=== PATIENT | male | born 1940 | race Caucasian/White ===

== ENCOUNTER 2018-03-14 14:54 | Inpatient (IN) | payer MEDICARE, OTHER ==
[2018-03-14 15:12] LABS: BEDSIDE GLUCOSE 192 MG/DL (83-110)
[2018-03-14] MEDS ORDERED: DOCUSATE SODIUM 100 MG CAP PO (18:15)
[2018-03-14] MEDS ORDERED: DEXTROSE 50% 50 ML SYRINGE IV (18:15)
[2018-03-14] MEDS ORDERED: GLUCAGON FOR INJ 1 MG VIAL (J1610) SC (18:15)
[2018-03-14] MEDS ORDERED: GLUCOSE 4 GM CHEW TABLET PO (18:15)
[2018-03-14] MEDS ORDERED: BISACODYL 10 MG SUPP PR (18:15)
[2018-03-14] MEDS ORDERED: SENNA 8.6 MG TAB (SENOKOT) PO (18:15)
[2018-03-14] MEDS: amLODIPine 5 MG TAB PO (18:41)
[2018-03-14] MEDS: ACETAMINOPHEN TAB 650MG DOSE (2X325MG) PO (18:52)
[2018-03-14 19:30] LABS: KETONE, URINE AUTO RFX TRACE mg/dL (NEGATIVE); LEUKOCYTE ESTERASE UR AUTO RFX NEGATIVE (NEGATIVE); MUCUS, URINE RFX SMALL (NEGATIVE); NITRITE, URINE AUTO RFX NEGATIVE (NEGATIVE); RBC, URINE AUTO RFX 2 /HPF (0-3); SPECIFIC GRAVITY UR AUTO RFX 1.014 (1.002-1.035); SQUAM EPITHELIAL CELL UR AURFX 0 /HPF (0-6); WBC, URINE AUTO RFX 3 /HPF (0-3)
[2018-03-14] MEDS: SODIUM CHLORIDE 1 GM TAB PO (20:13)
[2018-03-14] MEDS: HEPARIN SOD (PORCINE) 5000 UNITS/ML VIAL SQ (20:13)
[2018-03-14] MEDS: DOXYCYCLINE HYCLATE 100 MG TAB PO (20:14)
[2018-03-14] MEDS: POTASSIUM CHLORIDE 10 MEQ SR TABLET PO (20:14)
[2018-03-14 21:09] LABS: BEDSIDE GLUCOSE 241 MG/DL (83-110)
[2018-03-15] MEDS: ACETAMINOPHEN TAB 650MG DOSE (2X325MG) PO ×2 (02:52→20:13)
[2018-03-15 07:34] LABS: BASO % 0.2 % (0.0-1.0); HEMATOCRIT 41.3 % (42.0-52.0); HEMOGLOBIN 14.3 g/dl (13.5-17.5); IMMATURE GRANULOCYTE % 0.5 % (0-3.0); LYMPH # 0.8 10^3/uL (1.5-4.5); LYMPH % 9.9 % (24.0-44.0); MEAN CORPUSCULAR HEMOGLOBIN 28.7 pg (27.0-33.0); MEAN CORPUSCULAR HGB CONC 34.6 g/dl (32.0-36.5); MEAN CORPUSCULAR VOLUME 82.9 fl (80.0-96.0); MONO # 0.7 10^3/uL (0.0-0.8); MONO % 8.6 % (0.0-5.0); NEUTROPHILS # 6.6 10^3/uL (1.8-7.7); NEUTROPHILS % 80.8 % (36.0-66.0); PLATELET COUNT, AUTOMATED 134 10^3/uL (150-450); RED BLOOD COUNT 4.98 10^6/uL (4.30-6.10); RED CELL DISTRIBUTION WIDTH 13.2 % (11.5-14.5); WHITE BLOOD COUNT 8.2 10^3/uL (4.0-10.0)
[2018-03-15] MEDS ORDERED: metFORMIN (GLUCOPHAGE) 500 MG TAB PO (08:00)
[2018-03-15 08:08] LABS: ALBUMIN 3.2 GM/DL (3.2-5.2); ALBUMIN/GLOBULIN RATIO 0.91 (1.00-1.93); ALKALINE PHOSPHATASE 113 U/L (45-117); ALT/SGPT 43 U/L (12-78); ANION GAP 8 MEQ/L (8-16); AST/SGOT 41 U/L (7-37); BILIRUBIN,TOTAL 0.8 MG/DL (0.2-1.0); BLOOD UREA NITROGEN 12 MG/DL (7-18); CALCIUM LEVEL 8.1 MG/DL (8.8-10.2); CARBON DIOXIDE LEVEL 25 MEQ/L (21-32); CHLORIDE LEVEL 97 MEQ/L (98-107); GLOMERULAR FILTRATION RATE > 60.0 (>42); GLUCOSE, FASTING 182 MG/DL (70-100); POTASSIUM SERUM 3.2 MEQ/L (3.5-5.1); SODIUM LEVEL 130 MEQ/L (136-145); TOTAL PROTEIN 6.7 GM/DL (6.4-8.2)
[2018-03-15] MEDS: POTASSIUM CHLORIDE 10 MEQ SR TABLET PO ×3 (08:55→20:14)
[2018-03-15] MEDS: FINASTERIDE 5 MG TAB PO (08:56)
[2018-03-15] MEDS: PANTOPRAZOLE 40MG TAB (PROTONIX) PO (08:56)
[2018-03-15] MEDS: SODIUM CHLORIDE 1 GM TAB PO ×3 (08:56→20:13)
[2018-03-15] MEDS: metFORMIN (GLUCOPHAGE) 500 MG TAB PO ×2 (08:56→17:42)
[2018-03-15] MEDS: HEPARIN SOD (PORCINE) 5000 UNITS/ML VIAL SQ ×2 (08:56→20:15)
[2018-03-15] MEDS: DOXYCYCLINE HYCLATE 100 MG TAB PO ×2 (08:56→20:14)
[2018-03-15] MEDS: amLODIPine 10 MG TAB PO (08:56)
[2018-03-15] MEDS: HumaLOG INSULIN (NovoLOG) PER UNIT SC ×3 (08:57→17:42)
[2018-03-15] MEDS: LOSARTAN 50 MG TAB PO (10:40)
[2018-03-15 11:45] LABS: BEDSIDE GLUCOSE 216 MG/DL (83-110)
[2018-03-15] MEDS: LISINOPRIL 10 MG TAB PO ×2 (14:32→20:14)
[2018-03-15 16:30] LABS: BEDSIDE GLUCOSE 138 MG/DL (83-110)
[2018-03-15] MEDS: LEVEMIR (INSULIN DETEMIR) 1 UNITS/0.01ML SC (20:15)
[2018-03-15 20:22] LABS: BEDSIDE GLUCOSE 204 MG/DL (83-110)
[2018-03-16 06:48] LABS: ANION GAP 10 MEQ/L (8-16); BLOOD UREA NITROGEN 17 MG/DL (7-18); CALCIUM LEVEL 8.2 MG/DL (8.8-10.2); CARBON DIOXIDE LEVEL 22 MEQ/L (21-32); CHLORIDE LEVEL 98 MEQ/L (98-107); CREATININE FOR GFR 0.62 MG/DL (0.70-1.30); GLOMERULAR FILTRATION RATE > 60.0 (>42); GLUCOSE, FASTING 167 MG/DL (70-100); POTASSIUM SERUM 3.5 MEQ/L (3.5-5.1); SODIUM LEVEL 130 MEQ/L (136-145)
[2018-03-16] MEDS: SODIUM CHLORIDE 1 GM TAB PO ×3 (08:47→19:58)
[2018-03-16] MEDS: metFORMIN (GLUCOPHAGE) 500 MG TAB PO ×2 (08:47→17:00)
[2018-03-16] MEDS: DOXYCYCLINE HYCLATE 100 MG TAB PO ×2 (08:47→19:58)
[2018-03-16] MEDS: PANTOPRAZOLE 40MG TAB (PROTONIX) PO (08:47)
[2018-03-16] MEDS: FINASTERIDE 5 MG TAB PO (08:48)
[2018-03-16] MEDS: HEPARIN SOD (PORCINE) 5000 UNITS/ML VIAL SQ ×2 (08:48→19:59)
[2018-03-16] MEDS: POTASSIUM CHLORIDE 10 MEQ SR TABLET PO ×2 (08:48→19:58)
[2018-03-16] MEDS: HumaLOG INSULIN (NovoLOG) PER UNIT SC ×3 (08:49→17:00)
[2018-03-16] MEDS: FLUBLOK(EGG FREE)(QUAD)INFLUENZA VACC 0.5ML SYRINGE (90682)18YRS&OLDER IM (08:50)
[2018-03-16] MEDS: amLODIPine 10 MG TAB PO (08:56)
[2018-03-16] MEDS: LISINOPRIL 10 MG TAB PO ×2 (08:56→19:59)
[2018-03-16] MEDS: LOSARTAN 50 MG TAB PO (10:11)
[2018-03-16 11:51] LABS: BEDSIDE GLUCOSE 169 MG/DL (83-110)
[2018-03-16 16:20] LABS: BEDSIDE GLUCOSE 150 MG/DL (83-110)
[2018-03-16] MEDS: NYSTATIN CREAM 15 GM TOP (19:58)
[2018-03-16] MEDS: ACETAMINOPHEN TAB 650MG DOSE (2X325MG) PO (19:59)
[2018-03-16 20:00] LABS: BEDSIDE GLUCOSE 188 MG/DL (83-110)
[2018-03-16] MEDS: LEVEMIR (INSULIN DETEMIR) 1 UNITS/0.01ML SC (20:00)
[2018-03-17 07:05] LABS: BEDSIDE GLUCOSE 177 MG/DL (83-110)
[2018-03-17] MEDS: SODIUM CHLORIDE 1 GM TAB PO (08:13)
[2018-03-17] MEDS: PANTOPRAZOLE 40MG TAB (PROTONIX) PO (08:13)
[2018-03-17] MEDS: FINASTERIDE 5 MG TAB PO (08:14)
[2018-03-17] MEDS: DOXYCYCLINE HYCLATE 100 MG TAB PO (08:14)
[2018-03-17] MEDS: POTASSIUM CHLORIDE 10 MEQ SR TABLET PO (08:14)
[2018-03-17] MEDS: metFORMIN (GLUCOPHAGE) 500 MG TAB PO (08:14)
[2018-03-17] MEDS: LISINOPRIL 10 MG TAB PO ×2 (08:16→13:13)
[2018-03-17] MEDS: HumaLOG INSULIN (NovoLOG) PER UNIT SC ×2 (08:18→13:13)
[2018-03-17] MEDS: HEPARIN SOD (PORCINE) 5000 UNITS/ML VIAL SQ (08:18)
[2018-03-17] MEDS: amLODIPine 10 MG TAB PO (08:18)
[2018-03-17] MEDS: NYSTATIN CREAM 15 GM TOP (08:19)
[2018-03-17] MEDS: CLOBETASOL 0.05% TOP (09:00)
[2018-03-17] MEDS: LOSARTAN 50 MG TAB PO (10:02)
[2018-03-17 11:41] LABS: BEDSIDE GLUCOSE 175 MG/DL (83-110)
[2018-03-17] MEDS: LISINOPRIL 20 MG TAB PO (15:39)
[2018-03-17] MEDS ORDERED: LISINOPRIL 20 MG TAB PO (21:00)
== END 2018-03-17 16:43 | disposition short-term general hospital (02) | DRG 56 ==
LOC: M PM&R 14:54
PROVIDERS: Physical Medicine & Rehabilitation
DX: I69.254 Hemiplegia and hemiparesis following other nontraumatic intracranial hemorrhage affecting left non-dominant side (principal); I61.1 Nontraumatic intracerebral hemorrhage in hemisphere, cortical; E87.1 Hypo-osmolality and hyponatremia; E87.6 Hypokalemia; E11.9 Type 2 diabetes mellitus without complications; I10 Essential (primary) hypertension; Z79.899 Other long term (current) drug therapy; Z79.4 Long term (current) use of insulin; L73.9 Follicular disorder, unspecified

== ENCOUNTER 2018-03-21 18:45 | Inpatient (IN) | payer MEDICARE, OTHER ==
[2018-03-21] MEDS ORDERED: BISACODYL 10 MG SUPP PR (20:15)
[2018-03-21] MEDS ORDERED: GLUCOSE 4 GM CHEW TABLET PO (20:15)
[2018-03-21] MEDS ORDERED: GLUCAGON FOR INJ 1 MG VIAL (J1610) SC (20:15)
[2018-03-21] MEDS ORDERED: DEXTROSE 50% 50 ML SYRINGE IV (20:15)
[2018-03-21 20:21] LABS: BEDSIDE GLUCOSE 231 MG/DL (83-110)
[2018-03-21] MEDS: CLOBETASOL PROP 0.05% OINT 30 GM TOP (22:15)
[2018-03-21] MEDS: POTASSIUM CHLORIDE 10 MEQ SR TABLET PO (22:15)
[2018-03-21] MEDS: **hydrALAZINE HCL** 25 MG TAB PO (22:15)
[2018-03-21] MEDS: ACETAMINOPHEN TAB 650MG DOSE (2X325MG) PO (22:16)
[2018-03-21] MEDS: SODIUM CHLORIDE 1 GM TAB PO (22:16)
[2018-03-21] MEDS: METOPROLOL TARTRATE 100 MG TAB PO (22:16)
[2018-03-22 00:56] LABS: APPEARANCE, URINE CLEAR (CLEAR); BACTERIA, URINE AUTO NEGATIVE (NEGATIVE); BILIRUBIN, URINE AUTO NEGATIVE (NEGATIVE); BLOOD, URINE BLOOD 1+ (NEGATIVE); COLOR, URINE YELLOW (YELLOW); GLUCOSE, URINE (UA) AUTO 3+ mg/dL (NEGATIVE); KETONE, URINE AUTO NEGATIVE (NEGATIVE); LEUKOCYTE ESTERASE, URINE AUTO TRACE (NEGATIVE); MUCUS, URINE SMALL (NEGATIVE); NITRITE, URINE AUTO NEGATIVE (NEGATIVE); PROTEIN, URINE AUTO NEGATIVE (NEGATIVE); RBC, URINE AUTO 7 /HPF (0-3); SPECIFIC GRAVITY URINE AUTO 1.017 (1.002-1.035); SQUAMOUS EPITHELIAL CELL UR AU 0 /HPF (0-6); UROBILINOGEN, URINE AUTO 0.2 mg/dL (0.0-2.0); WBC, URINE AUTO 8 /HPF (0-3)
[2018-03-22] MEDS: **hydrALAZINE HCL** 25 MG TAB PO ×2 (04:00→05:57)
[2018-03-22 07:02] LABS: BASO % 0.2 % (0.0-1.0); EOS % 0.5 % (0.0-3.0); HEMATOCRIT 38.4 % (42.0-52.0); IMMATURE GRANULOCYTE % 0.5 % (0-3.0); LYMPH # 0.8 10^3/uL (1.5-4.5); LYMPH % 8.9 % (24.0-44.0); MEAN CORPUSCULAR HEMOGLOBIN 28.4 pg (27.0-33.0); MEAN CORPUSCULAR HGB CONC 33.9 g/dl (32.0-36.5); MONO # 0.7 10^3/uL (0.0-0.8); MONO % 7.9 % (0.0-5.0); PLATELET COUNT, AUTOMATED 191 10^3/uL (150-450); RED BLOOD COUNT 4.57 10^6/uL (4.30-6.10); RED CELL DISTRIBUTION WIDTH 13.2 % (11.5-14.5); WHITE BLOOD COUNT 8.6 10^3/uL (4.0-10.0)
[2018-03-22 07:33] LABS: ALBUMIN 2.7 GM/DL (3.2-5.2); ALBUMIN/GLOBULIN RATIO 0.75 (1.00-1.93); ALKALINE PHOSPHATASE 126 U/L (45-117); ALT/SGPT 56 U/L (12-78); ANION GAP 9 MEQ/L (8-16); AST/SGOT 27 U/L (7-37); BILIRUBIN,TOTAL 0.6 MG/DL (0.2-1.0); BLOOD UREA NITROGEN 14 MG/DL (7-18); CALCIUM LEVEL 8.3 MG/DL (8.8-10.2); CARBON DIOXIDE LEVEL 25 MEQ/L (21-32); CHLORIDE LEVEL 99 MEQ/L (98-107); CREATININE FOR GFR 0.76 MG/DL (0.70-1.30); GLOMERULAR FILTRATION RATE > 60.0 (>42); GLUCOSE, FASTING 191 MG/DL (70-100); POTASSIUM SERUM 3.7 MEQ/L (3.5-5.1); SODIUM LEVEL 133 MEQ/L (136-145); TOTAL PROTEIN 6.3 GM/DL (6.4-8.2)
[2018-03-22] MEDS: HumaLOG INSULIN (NovoLOG) PER UNIT SC ×4 (08:35→17:30)
[2018-03-22] MEDS: amLODIPine 10 MG TAB PO (08:35)
[2018-03-22] MEDS: PANTOPRAZOLE 40MG TAB (PROTONIX) PO (08:36)
[2018-03-22] MEDS: FINASTERIDE 5 MG TAB PO (08:36)
[2018-03-22] MEDS: ATORVASTATIN 20 MG TAB PO (08:36)
[2018-03-22] MEDS: METOPROLOL TARTRATE 100 MG TAB PO ×2 (08:36→20:28)
[2018-03-22] MEDS: metFORMIN (GLUCOPHAGE) 500 MG TAB PO ×2 (08:36→16:49)
[2018-03-22] MEDS: LOSARTAN 50 MG TAB PO (08:36)
[2018-03-22] MEDS: CLOBETASOL PROP 0.05% OINT 30 GM TOP ×2 (08:37→20:28)
[2018-03-22] MEDS: POTASSIUM CHLORIDE 10 MEQ SR TABLET PO ×2 (08:37→20:27)
[2018-03-22] MEDS: SODIUM CHLORIDE 1 GM TAB PO ×3 (08:37→20:26)
[2018-03-22 11:31] LABS: BEDSIDE GLUCOSE 270 MG/DL (83-110)
[2018-03-22] MEDS: **hydrALAZINE** 50 MG TAB PO ×2 (13:37→22:00)
[2018-03-22 16:41] LABS: BEDSIDE GLUCOSE 177 MG/DL (83-110)
[2018-03-22] MEDS ORDERED: GLUCOSE 4 GM CHEW TABLET PO (16:45)
[2018-03-22] MEDS ORDERED: ENOXAPARIN 40 MG/0.4 ML SYRINGE (J1650) SC (16:45)
[2018-03-22] MEDS ORDERED: DEXTROSE 50% 50 ML SYRINGE IV (16:45)
[2018-03-22] MEDS ORDERED: GLUCAGON FOR INJ 1 MG VIAL (J1610) SC (16:45)
[2018-03-22] MEDS: NovoLOG MIX 70/30 PER UNIT SC (17:49)
[2018-03-22 20:13] LABS: BEDSIDE GLUCOSE 196 MG/DL (83-110)
[2018-03-22] MEDS: LEVEMIR (INSULIN DETEMIR) 1 UNITS/0.01ML SC (20:27)
[2018-03-22] MEDS: ACETAMINOPHEN TAB 650MG DOSE (2X325MG) PO (20:27)
[2018-03-23 05:17] LABS: BEDSIDE GLUCOSE 222 MG/DL (83-110)
[2018-03-23] MEDS: **hydrALAZINE** 50 MG TAB PO ×3 (05:23→21:19)
[2018-03-23] MEDS: HumaLOG INSULIN (NovoLOG) PER UNIT SC ×3 (08:45→17:20)
[2018-03-23] MEDS: METOPROLOL TARTRATE 100 MG TAB PO ×2 (08:47→21:00)
[2018-03-23] MEDS: FINASTERIDE 5 MG TAB PO (08:47)
[2018-03-23] MEDS: PANTOPRAZOLE 40MG TAB (PROTONIX) PO (08:47)
[2018-03-23] MEDS: POTASSIUM CHLORIDE 10 MEQ SR TABLET PO ×2 (08:48→20:37)
[2018-03-23] MEDS: LOSARTAN 50 MG TAB PO (08:48)
[2018-03-23] MEDS: SODIUM CHLORIDE 1 GM TAB PO ×3 (08:48→20:37)
[2018-03-23] MEDS: metFORMIN (GLUCOPHAGE) 500 MG TAB PO ×2 (08:48→17:18)
[2018-03-23] MEDS: amLODIPine 10 MG TAB PO (08:48)
[2018-03-23] MEDS: ATORVASTATIN 20 MG TAB PO (08:48)
[2018-03-23] MEDS: CLOBETASOL PROP 0.05% OINT 30 GM TOP ×2 (08:49→20:44)
[2018-03-23 11:43] LABS: BEDSIDE GLUCOSE 202 MG/DL (83-110)
[2018-03-23 16:44] LABS: BEDSIDE GLUCOSE 223 MG/DL (83-110)
[2018-03-23] MEDS: NovoLOG MIX 70/30 PER UNIT SC (17:19)
[2018-03-23] MEDS: ACETAMINOPHEN TAB 650MG DOSE (2X325MG) PO (17:22)
[2018-03-23] MEDS: LEVEMIR (INSULIN DETEMIR) 1 UNITS/0.01ML SC (20:38)
[2018-03-23 20:39] LABS: BEDSIDE GLUCOSE 170 MG/DL (83-110)
[2018-03-24] MEDS: **hydrALAZINE** 50 MG TAB PO ×3 (05:46→21:37)
[2018-03-24 05:52] LABS: BEDSIDE GLUCOSE 175 MG/DL (83-110)
[2018-03-24 06:47] LABS: BASO % 0.3 % (0.0-1.0); EOS % 0.4 % (0.0-3.0); HEMATOCRIT 42.1 % (42.0-52.0); HEMOGLOBIN 14.3 g/dl (13.5-17.5); IMMATURE GRANULOCYTE % 0.7 % (0-3.0); LYMPH # 0.9 10^3/uL (1.5-4.5); LYMPH % 8.4 % (24.0-44.0); MEAN CORPUSCULAR HEMOGLOBIN 28.4 pg (27.0-33.0); MEAN CORPUSCULAR VOLUME 83.7 fl (80.0-96.0); MONO # 0.7 10^3/uL (0.0-0.8); MONO % 6.4 % (0.0-5.0); NEUTROPHILS # 9.1 10^3/uL (1.8-7.7); NEUTROPHILS % 83.8 % (36.0-66.0); PLATELET COUNT, AUTOMATED 240 10^3/uL (150-450); RED BLOOD COUNT 5.03 10^6/uL (4.30-6.10); RED CELL DISTRIBUTION WIDTH 13.2 % (11.5-14.5); WHITE BLOOD COUNT 10.8 10^3/uL (4.0-10.0)
[2018-03-24 07:15] LABS: ANION GAP 9 MEQ/L (8-16); BLOOD UREA NITROGEN 13 MG/DL (7-18); CALCIUM LEVEL 8.8 MG/DL (8.8-10.2); CARBON DIOXIDE LEVEL 25 MEQ/L (21-32); CHLORIDE LEVEL 98 MEQ/L (98-107); CREATININE FOR GFR 0.74 MG/DL (0.70-1.30); GLOMERULAR FILTRATION RATE > 60.0 (>42); GLUCOSE, FASTING 170 MG/DL (70-100); POTASSIUM SERUM 3.9 MEQ/L (3.5-5.1); SODIUM LEVEL 132 MEQ/L (136-145)
[2018-03-24] MEDS: HumaLOG INSULIN (NovoLOG) PER UNIT SC ×3 (08:29→17:20)
[2018-03-24] MEDS: ATORVASTATIN 20 MG TAB PO (08:29)
[2018-03-24] MEDS: LOSARTAN 50 MG TAB PO (08:29)
[2018-03-24] MEDS: PANTOPRAZOLE 40MG TAB (PROTONIX) PO (08:29)
[2018-03-24] MEDS: SODIUM CHLORIDE 1 GM TAB PO ×3 (08:29→21:34)
[2018-03-24] MEDS: FINASTERIDE 5 MG TAB PO (08:30)
[2018-03-24] MEDS: amLODIPine 10 MG TAB PO (08:30)
[2018-03-24] MEDS: POTASSIUM CHLORIDE 10 MEQ SR TABLET PO ×2 (08:30→21:34)
[2018-03-24] MEDS: metFORMIN (GLUCOPHAGE) 500 MG TAB PO ×2 (08:30→17:18)
[2018-03-24] MEDS: METOPROLOL TARTRATE 100 MG TAB PO ×2 (08:31→21:34)
[2018-03-24] MEDS: CLOBETASOL PROP 0.05% OINT 30 GM TOP ×2 (08:31→21:36)
[2018-03-24 11:51] LABS: BEDSIDE GLUCOSE 199 MG/DL (83-110)
[2018-03-24] MEDS ORDERED: traZODone 25MG PER 1/2 TABLET PO (12:45)
[2018-03-24] MEDS: FLUoxetine 20 MG CAP PO (16:32)
[2018-03-24 16:43] LABS: BEDSIDE GLUCOSE 222 MG/DL (83-110)
[2018-03-24] MEDS: NovoLOG MIX 70/30 PER UNIT SC (17:19)
[2018-03-24] MEDS: BISACODYL 10 MG SUPP PR (20:00)
[2018-03-24 20:10] LABS: BEDSIDE GLUCOSE 165 MG/DL (83-110)
[2018-03-24] MEDS: DOCUSATE SODIUM 100 MG CAP PO (21:33)
[2018-03-24] MEDS: traZODone 50 MG TAB PO (21:33)
[2018-03-24] MEDS: LEVEMIR (INSULIN DETEMIR) 1 UNITS/0.01ML SC (21:35)
[2018-03-24] MEDS: CHLORHEXIDINE ORAL RINSE 0.12%/15ML 120ML BOTTLE SSP (21:35)
[2018-03-25] MEDS: **hydrALAZINE** 50 MG TAB PO ×3 (05:29→21:09)
[2018-03-25] MEDS: METOPROLOL TARTRATE 100 MG TAB PO ×2 (08:55→20:41)
[2018-03-25] MEDS: LOSARTAN 50 MG TAB PO (08:55)
[2018-03-25] MEDS: FLUoxetine 20 MG CAP PO (08:56)
[2018-03-25] MEDS: POTASSIUM CHLORIDE 10 MEQ SR TABLET PO ×2 (08:56→20:39)
[2018-03-25] MEDS: ATORVASTATIN 20 MG TAB PO (08:56)
[2018-03-25] MEDS: FINASTERIDE 5 MG TAB PO (08:56)
[2018-03-25] MEDS: metFORMIN (GLUCOPHAGE) 500 MG TAB PO ×2 (08:56→17:55)
[2018-03-25] MEDS: amLODIPine 10 MG TAB PO (08:56)
[2018-03-25] MEDS: SODIUM CHLORIDE 1 GM TAB PO ×3 (08:56→20:39)
[2018-03-25] MEDS: DOCUSATE SODIUM 100 MG CAP PO ×2 (08:56→20:38)
[2018-03-25] MEDS: PANTOPRAZOLE 40MG TAB (PROTONIX) PO (08:56)
[2018-03-25] MEDS: CHLORHEXIDINE ORAL RINSE 0.12%/15ML 120ML BOTTLE SSP ×2 (08:57→20:40)
[2018-03-25] MEDS: CLOBETASOL PROP 0.05% OINT 30 GM TOP ×2 (08:58→20:42)
[2018-03-25] MEDS: HumaLOG INSULIN (NovoLOG) PER UNIT SC ×3 (09:30→17:56)
[2018-03-25 09:57] LABS: HEMATOCRIT 43.4 % (42.0-52.0); HEMOGLOBIN 14.5 g/dl (13.5-17.5); MEAN CORPUSCULAR HEMOGLOBIN 28.8 pg (27.0-33.0); MEAN CORPUSCULAR HGB CONC 33.4 g/dl (32.0-36.5); MEAN CORPUSCULAR VOLUME 86.3 fl (80.0-96.0); PLATELET COUNT, AUTOMATED 292 10^3/uL (150-450); RED BLOOD COUNT 5.03 10^6/uL (4.30-6.10); RED CELL DISTRIBUTION WIDTH 13.5 % (11.5-14.5)
[2018-03-25 10:23] LABS: ANION GAP 8 MEQ/L (8-16); BLOOD UREA NITROGEN 18 MG/DL (7-18); CALCIUM LEVEL 9.1 MG/DL (8.8-10.2); CARBON DIOXIDE LEVEL 27 MEQ/L (21-32); CHLORIDE LEVEL 97 MEQ/L (98-107); CREATININE FOR GFR 1.15 MG/DL (0.70-1.30); GLOMERULAR FILTRATION RATE > 60.0 (>42); GLUCOSE, FASTING 303 MG/DL (70-100); POTASSIUM SERUM 4.3 MEQ/L (3.5-5.1); SODIUM LEVEL 132 MEQ/L (136-145)
[2018-03-25 11:46] LABS: BEDSIDE GLUCOSE 238 MG/DL (83-110)
[2018-03-25] MEDS: SENNA 8.6 MG TAB (SENOKOT) PO (12:00)
[2018-03-25] MEDS: CIPROFLOXACIN 500 MG TAB PO ×2 (12:00→17:55)
[2018-03-25 15:18] LABS: KETONE, URINE AUTO RFX NEGATIVE (NEGATIVE); MUCUS, URINE RFX SMALL (NEGATIVE); NITRITE, URINE AUTO RFX NEGATIVE (NEGATIVE); RBC, URINE AUTO RFX TNTC /HPF (0-3); SPECIFIC GRAVITY UR AUTO RFX 1.017 (1.002-1.035); SQUAM EPITHELIAL CELL UR AURFX 0 /HPF (0-6)
[2018-03-25 15:27] LABS: LEUKOCYTE ESTERASE UR AUTO RFX 3+ (NEGATIVE); WBC, URINE AUTO RFX TNTC /HPF (0-3)
[2018-03-25 17:04] LABS: BEDSIDE GLUCOSE 145 MG/DL (83-110)
[2018-03-25] MEDS: NovoLOG MIX 70/30 PER UNIT SC (17:57)
[2018-03-25 19:42] LABS: BEDSIDE GLUCOSE 270 MG/DL (83-110)
[2018-03-25] MEDS: BISACODYL 10 MG SUPP PR (20:00)
[2018-03-25] MEDS: LEVEMIR (INSULIN DETEMIR) 1 UNITS/0.01ML SC (20:40)
[2018-03-25] MEDS: traZODone 50 MG TAB PO (20:41)
[2018-03-26 05:23] LABS: BEDSIDE GLUCOSE 182 MG/DL (83-110)
[2018-03-26] MEDS: CIPROFLOXACIN 500 MG TAB PO ×2 (05:57→17:50)
[2018-03-26] MEDS: **hydrALAZINE** 50 MG TAB PO ×3 (05:57→22:01)
[2018-03-26 07:07] LABS: HEMATOCRIT 42.1 % (42.0-52.0); HEMOGLOBIN 14.1 g/dl (13.5-17.5); MEAN CORPUSCULAR HEMOGLOBIN 28.7 pg (27.0-33.0); MEAN CORPUSCULAR HGB CONC 33.5 g/dl (32.0-36.5); MEAN CORPUSCULAR VOLUME 85.6 fl (80.0-96.0); PLATELET COUNT, AUTOMATED 233 10^3/uL (150-450); RED BLOOD COUNT 4.92 10^6/uL (4.30-6.10); RED CELL DISTRIBUTION WIDTH 13.5 % (11.5-14.5); WHITE BLOOD COUNT 10.6 10^3/uL (4.0-10.0)
[2018-03-26 07:37] LABS: ALBUMIN 3.1 GM/DL (3.2-5.2); ALBUMIN/GLOBULIN RATIO 0.86 (1.00-1.93); ALKALINE PHOSPHATASE 145 U/L (45-117); ALT/SGPT 52 U/L (12-78); ANION GAP 8 MEQ/L (8-16); AST/SGOT 20 U/L (7-37); BILIRUBIN,TOTAL 0.6 MG/DL (0.2-1.0); BLOOD UREA NITROGEN 23 MG/DL (7-18); CALCIUM LEVEL 8.6 MG/DL (8.8-10.2); CARBON DIOXIDE LEVEL 25 MEQ/L (21-32); CHLORIDE LEVEL 103 MEQ/L (98-107); CREATININE FOR GFR 0.92 MG/DL (0.70-1.30); GLOMERULAR FILTRATION RATE > 60.0 (>42); GLUCOSE, FASTING 186 MG/DL (70-100); POTASSIUM SERUM 4.2 MEQ/L (3.5-5.1); SODIUM LEVEL 136 MEQ/L (136-145); TOTAL PROTEIN 6.7 GM/DL (6.4-8.2)
[2018-03-26] MEDS: POTASSIUM CHLORIDE 10 MEQ SR TABLET PO ×2 (08:56→21:59)
[2018-03-26] MEDS: HumaLOG INSULIN (NovoLOG) PER UNIT SC ×3 (08:56→17:51)
[2018-03-26] MEDS: FLUoxetine 20 MG CAP PO (08:56)
[2018-03-26] MEDS: PANTOPRAZOLE 40MG TAB (PROTONIX) PO (08:57)
[2018-03-26] MEDS: metFORMIN (GLUCOPHAGE) 500 MG TAB PO ×2 (08:57→17:50)
[2018-03-26] MEDS: DOCUSATE SODIUM 100 MG CAP PO ×2 (08:57→21:59)
[2018-03-26] MEDS: FINASTERIDE 5 MG TAB PO (08:57)
[2018-03-26] MEDS: ATORVASTATIN 20 MG TAB PO (08:57)
[2018-03-26] MEDS: SODIUM CHLORIDE 1 GM TAB PO ×3 (08:57→21:58)
[2018-03-26] MEDS: METOPROLOL TARTRATE 100 MG TAB PO (09:00)
[2018-03-26] MEDS: LOSARTAN 50 MG TAB PO (09:01)
[2018-03-26] MEDS: amLODIPine 10 MG TAB PO (09:01)
[2018-03-26] MEDS: CHLORHEXIDINE ORAL RINSE 0.12%/15ML 120ML BOTTLE SSP ×2 (09:02→22:02)
[2018-03-26] MEDS: CLOBETASOL PROP 0.05% OINT 30 GM TOP ×2 (09:03→22:01)
[2018-03-26 11:25] LABS: BEDSIDE GLUCOSE 192 MG/DL (83-110)
[2018-03-26] MEDS: SENNA 8.6 MG TAB (SENOKOT) PO (13:16)
[2018-03-26 16:29] LABS: BEDSIDE GLUCOSE 197 MG/DL (83-110)
[2018-03-26] MEDS: NovoLOG MIX 70/30 PER UNIT SC (17:50)
[2018-03-26] MEDS: BISACODYL 10 MG SUPP PR (20:00)
[2018-03-26 21:01] LABS: BEDSIDE GLUCOSE 174 MG/DL (83-110)
[2018-03-26] MEDS: traZODone 50 MG TAB PO (21:59)
[2018-03-26] MEDS: traZODone 25MG PER 1/2 TABLET PO (22:00)
[2018-03-26] MEDS: DOXYCYCLINE HYCLATE 100 MG TAB PO (22:00)
[2018-03-26] MEDS: METOPROLOL TART 50 MG TAB PO (22:00)
[2018-03-26] MEDS: LEVEMIR (INSULIN DETEMIR) 1 UNITS/0.01ML SC (22:01)
[2018-03-27] MEDS: CIPROFLOXACIN 500 MG TAB PO ×2 (05:44→17:07)
[2018-03-27] MEDS: **hydrALAZINE** 50 MG TAB PO ×3 (05:44→21:37)
[2018-03-27 06:57] LABS: BEDSIDE GLUCOSE 145 MG/DL (83-110)
[2018-03-27] MEDS: metFORMIN (GLUCOPHAGE) 500 MG TAB PO ×2 (08:09→17:07)
[2018-03-27] MEDS: HumaLOG INSULIN (NovoLOG) PER UNIT SC ×3 (08:10→17:08)
[2018-03-27] MEDS: METOPROLOL TART 25 MG TABLET PO ×2 (09:00→21:38)
[2018-03-27] MEDS: amLODIPine 10 MG TAB PO (09:00)
[2018-03-27] MEDS: LOSARTAN 50 MG TAB PO (09:00)
[2018-03-27] MEDS: CHLORHEXIDINE ORAL RINSE 0.12%/15ML 120ML BOTTLE SSP ×2 (10:28→21:38)
[2018-03-27] MEDS: ATORVASTATIN 20 MG TAB PO (10:29)
[2018-03-27] MEDS: PANTOPRAZOLE 40MG TAB (PROTONIX) PO (10:29)
[2018-03-27] MEDS: POTASSIUM CHLORIDE 10 MEQ SR TABLET PO ×2 (10:29→21:37)
[2018-03-27] MEDS: DOXYCYCLINE HYCLATE 100 MG TAB PO ×2 (10:29→21:36)
[2018-03-27] MEDS: FINASTERIDE 5 MG TAB PO (10:30)
[2018-03-27] MEDS: FLUoxetine 20 MG CAP PO (10:30)
[2018-03-27] MEDS: DOCUSATE SODIUM 100 MG CAP PO ×2 (10:30→21:36)
[2018-03-27] MEDS: SODIUM CHLORIDE 1 GM TAB PO ×3 (10:30→21:38)
[2018-03-27] MEDS: CLOBETASOL PROP 0.05% OINT 30 GM TOP ×2 (10:32→21:00)
[2018-03-27 11:41] LABS: BEDSIDE GLUCOSE 238 MG/DL (83-110)
[2018-03-27] MEDS: SENNA 8.6 MG TAB (SENOKOT) PO (12:17)
[2018-03-27 16:37] LABS: BEDSIDE GLUCOSE 161 MG/DL (83-110)
[2018-03-27] MEDS: NovoLOG MIX 70/30 PER UNIT SC (17:07)
[2018-03-27] MEDS: BISACODYL 10 MG SUPP PR (20:00)
[2018-03-27 20:34] LABS: BEDSIDE GLUCOSE 152 MG/DL (83-110)
[2018-03-27] MEDS: LEVEMIR (INSULIN DETEMIR) 1 UNITS/0.01ML SC (21:36)
[2018-03-27] MEDS: traZODone 50 MG TAB PO (21:36)
[2018-03-27] MEDS: traZODone 25MG PER 1/2 TABLET PO (21:38)
[2018-03-28 05:19] LABS: BEDSIDE GLUCOSE 135 MG/DL (83-110)
[2018-03-28] MEDS: CIPROFLOXACIN 500 MG TAB PO ×2 (05:23→17:14)
[2018-03-28] MEDS: **hydrALAZINE** 50 MG TAB PO ×3 (05:23→21:53)
[2018-03-28 08:20] LABS: BASO % 0.3 % (0.0-1.0); EOS # 0.1 10^3/uL (0.0-0.50); EOS % 1.2 % (0.0-3.0); HEMATOCRIT 38.4 % (42.0-52.0); HEMOGLOBIN 12.5 g/dl (13.5-17.5); IMMATURE GRANULOCYTE % 0.4 % (0-3.0); LYMPH # 0.6 10^3/uL (1.5-4.5); LYMPH % 8.5 % (24.0-44.0); MEAN CORPUSCULAR HEMOGLOBIN 28.4 pg (27.0-33.0); MEAN CORPUSCULAR HGB CONC 32.6 g/dl (32.0-36.5); MEAN CORPUSCULAR VOLUME 87.3 fl (80.0-96.0); MONO # 0.5 10^3/uL (0.0-0.8); MONO % 7.3 % (0.0-5.0); NEUTROPHILS # 6.1 10^3/uL (1.8-7.7); NEUTROPHILS % 82.3 % (36.0-66.0); PLATELET COUNT, AUTOMATED 194 10^3/uL (150-450); RED CELL DISTRIBUTION WIDTH 13.6 % (11.5-14.5); WHITE BLOOD COUNT 7.4 10^3/uL (4.0-10.0)
[2018-03-28 08:43] LABS: ANION GAP 6 MEQ/L (8-16); BLOOD UREA NITROGEN 27 MG/DL (7-18); CALCIUM LEVEL 8.6 MG/DL (8.8-10.2); CARBON DIOXIDE LEVEL 26 MEQ/L (21-32); CHLORIDE LEVEL 107 MEQ/L (98-107); CREATININE FOR GFR 0.84 MG/DL (0.70-1.30); GLOMERULAR FILTRATION RATE > 60.0 (>42); GLUCOSE, FASTING 144 MG/DL (70-100); POTASSIUM SERUM 4.1 MEQ/L (3.5-5.1); SODIUM LEVEL 139 MEQ/L (136-145)
[2018-03-28] MEDS: PANTOPRAZOLE 40MG TAB (PROTONIX) PO (08:47)
[2018-03-28] MEDS: HumaLOG INSULIN (NovoLOG) PER UNIT SC ×3 (08:47→17:14)
[2018-03-28] MEDS: FINASTERIDE 5 MG TAB PO (08:48)
[2018-03-28] MEDS: ATORVASTATIN 20 MG TAB PO (08:48)
[2018-03-28] MEDS: POTASSIUM CHLORIDE 10 MEQ SR TABLET PO ×2 (08:48→21:54)
[2018-03-28] MEDS: DOXYCYCLINE HYCLATE 100 MG TAB PO ×2 (08:48→21:53)
[2018-03-28] MEDS: SODIUM CHLORIDE 1 GM TAB PO ×3 (08:48→21:00)
[2018-03-28] MEDS: DOCUSATE SODIUM 100 MG CAP PO ×2 (08:48→21:54)
[2018-03-28] MEDS: FLUoxetine 20 MG CAP PO (08:48)
[2018-03-28] MEDS: LOSARTAN 50 MG TAB PO (08:49)
[2018-03-28] MEDS: metFORMIN (GLUCOPHAGE) 500 MG TAB PO ×2 (08:49→17:14)
[2018-03-28] MEDS: METOPROLOL TART 25 MG TABLET PO ×2 (08:49→21:00)
[2018-03-28] MEDS: CHLORHEXIDINE ORAL RINSE 0.12%/15ML 120ML BOTTLE SSP ×2 (08:50→21:55)
[2018-03-28] MEDS: amLODIPine 10 MG TAB PO (08:50)
[2018-03-28] MEDS: CLOBETASOL PROP 0.05% OINT 30 GM TOP ×2 (08:50→21:55)
[2018-03-28 12:37] LABS: BEDSIDE GLUCOSE 157 MG/DL (83-110)
[2018-03-28] MEDS: SENNA 8.6 MG TAB (SENOKOT) PO (13:02)
[2018-03-28 16:23] LABS: BEDSIDE GLUCOSE 132 MG/DL (83-110)
[2018-03-28] MEDS: NovoLOG MIX 70/30 PER UNIT SC (17:15)
[2018-03-28] MEDS: BISACODYL 10 MG SUPP PR (20:00)
[2018-03-28 21:51] LABS: BEDSIDE GLUCOSE 169 MG/DL (83-110)
[2018-03-28] MEDS: traZODone 25MG PER 1/2 TABLET PO (21:52)
[2018-03-28] MEDS: traZODone 50 MG TAB PO (21:53)
[2018-03-28] MEDS: LEVEMIR (INSULIN DETEMIR) 1 UNITS/0.01ML SC (21:55)
[2018-03-29] MEDS: ACETAMINOPHEN TAB 650MG DOSE (2X325MG) PO ×2 (01:39→08:44)
[2018-03-29 05:19] LABS: BEDSIDE GLUCOSE 116 MG/DL (83-110)
[2018-03-29] MEDS: **hydrALAZINE** 50 MG TAB PO ×3 (05:19→20:57)
[2018-03-29] MEDS: CIPROFLOXACIN 500 MG TAB PO ×2 (05:19→17:15)
[2018-03-29] MEDS: SODIUM CHLORIDE 1 GM TAB PO ×3 (08:35→20:57)
[2018-03-29] MEDS: FLUoxetine 20 MG CAP PO (08:35)
[2018-03-29] MEDS: DOXYCYCLINE HYCLATE 100 MG TAB PO ×2 (08:36→20:57)
[2018-03-29] MEDS: FINASTERIDE 5 MG TAB PO (08:36)
[2018-03-29] MEDS: ATORVASTATIN 20 MG TAB PO (08:36)
[2018-03-29] MEDS: DOCUSATE SODIUM 100 MG CAP PO ×2 (08:36→21:00)
[2018-03-29] MEDS: POTASSIUM CHLORIDE 10 MEQ SR TABLET PO ×2 (08:41→20:57)
[2018-03-29] MEDS: METOPROLOL TART 25 MG TABLET PO ×2 (08:42→20:58)
[2018-03-29] MEDS: LOSARTAN 50 MG TAB PO (08:43)
[2018-03-29] MEDS: PANTOPRAZOLE 40MG TAB (PROTONIX) PO (08:43)
[2018-03-29] MEDS: metFORMIN (GLUCOPHAGE) 500 MG TAB PO ×2 (08:43→17:15)
[2018-03-29] MEDS: amLODIPine 10 MG TAB PO (08:44)
[2018-03-29] MEDS: CHLORHEXIDINE ORAL RINSE 0.12%/15ML 120ML BOTTLE SSP ×2 (08:45→20:59)
[2018-03-29] MEDS: HumaLOG INSULIN (NovoLOG) PER UNIT SC ×3 (08:45→17:17)
[2018-03-29] MEDS: CLOBETASOL PROP 0.05% OINT 30 GM TOP ×2 (08:46→20:59)
[2018-03-29] MEDS: SENNA 8.6 MG TAB (SENOKOT) PO (12:24)
[2018-03-29] MEDS: NovoLOG MIX 70/30 PER UNIT SC (17:16)
[2018-03-29] MEDS: BISACODYL 10 MG SUPP PR (20:00)
[2018-03-29 20:37] LABS: BEDSIDE GLUCOSE 134 MG/DL (83-110)
[2018-03-29 20:37] LABS: BEDSIDE GLUCOSE 195 MG/DL (83-110)
[2018-03-29] MEDS: traZODone 50 MG TAB PO (20:56)
[2018-03-29] MEDS: traZODone 25MG PER 1/2 TABLET PO (20:57)
[2018-03-29] MEDS: LEVEMIR (INSULIN DETEMIR) 1 UNITS/0.01ML SC (20:58)
[2018-03-29 22:04] LABS: BEDSIDE GLUCOSE 211 MG/DL (83-110)
[2018-03-30] MEDS: **hydrALAZINE** 50 MG TAB PO ×3 (05:00→21:10)
[2018-03-30] MEDS: CIPROFLOXACIN 500 MG TAB PO ×2 (05:00→17:50)
[2018-03-30 06:11] LABS: BEDSIDE GLUCOSE 108 MG/DL (83-110)
[2018-03-30] MEDS: LOSARTAN 50 MG TAB PO (09:00)
[2018-03-30] MEDS: METOPROLOL TART 25 MG TABLET PO ×2 (09:00→20:44)
[2018-03-30] MEDS: amLODIPine 10 MG TAB PO (09:00)
[2018-03-30] MEDS: ATORVASTATIN 20 MG TAB PO (09:21)
[2018-03-30] MEDS: FINASTERIDE 5 MG TAB PO (09:21)
[2018-03-30] MEDS: HumaLOG INSULIN (NovoLOG) PER UNIT SC ×3 (09:21→17:49)
[2018-03-30] MEDS: DOXYCYCLINE HYCLATE 100 MG TAB PO ×2 (09:21→20:44)
[2018-03-30] MEDS: DOCUSATE SODIUM 100 MG CAP PO ×2 (09:21→20:44)
[2018-03-30] MEDS: FLUoxetine 20 MG CAP PO (09:22)
[2018-03-30] MEDS: metFORMIN (GLUCOPHAGE) 500 MG TAB PO ×2 (09:29→17:50)
[2018-03-30] MEDS: POTASSIUM CHLORIDE 10 MEQ SR TABLET PO ×2 (09:29→20:45)
[2018-03-30] MEDS: PANTOPRAZOLE 40MG TAB (PROTONIX) PO (09:29)
[2018-03-30] MEDS: SODIUM CHLORIDE 1 GM TAB PO ×3 (09:29→20:44)
[2018-03-30] MEDS: CLOBETASOL PROP 0.05% OINT 30 GM TOP ×2 (09:31→20:46)
[2018-03-30] MEDS: CHLORHEXIDINE ORAL RINSE 0.12%/15ML 120ML BOTTLE SSP ×2 (09:31→20:46)
[2018-03-30] MEDS: SENNA 8.6 MG TAB (SENOKOT) PO (12:29)
[2018-03-30] MEDS: NovoLOG MIX 70/30 PER UNIT SC (17:49)
[2018-03-30] MEDS: BISACODYL 10 MG SUPP PR (19:17)
[2018-03-30] MEDS: traZODone 25MG PER 1/2 TABLET PO (20:43)
[2018-03-30] MEDS: traZODone 50 MG TAB PO (20:43)
[2018-03-30] MEDS: ACETAMINOPHEN TAB 650MG DOSE (2X325MG) PO (20:44)
[2018-03-30] MEDS: LEVEMIR (INSULIN DETEMIR) 1 UNITS/0.01ML SC (20:45)
[2018-03-31] MEDS: CIPROFLOXACIN 500 MG TAB PO ×2 (06:42→17:35)
[2018-03-31] MEDS: **hydrALAZINE** 50 MG TAB PO ×3 (06:43→21:29)
[2018-03-31] MEDS: HumaLOG INSULIN (NovoLOG) PER UNIT SC ×3 (08:05→17:07)
[2018-03-31] MEDS: FLUoxetine 20 MG CAP PO (09:42)
[2018-03-31] MEDS: amLODIPine 10 MG TAB PO (09:44)
[2018-03-31] MEDS: POTASSIUM CHLORIDE 10 MEQ SR TABLET PO ×2 (09:45→21:28)
[2018-03-31] MEDS: SODIUM CHLORIDE 1 GM TAB PO ×3 (09:45→21:28)
[2018-03-31] MEDS: METOPROLOL TART 25 MG TABLET PO ×2 (09:45→21:28)
[2018-03-31] MEDS: ATORVASTATIN 20 MG TAB PO (09:45)
[2018-03-31] MEDS: PANTOPRAZOLE 40MG TAB (PROTONIX) PO (09:46)
[2018-03-31] MEDS: metFORMIN (GLUCOPHAGE) 500 MG TAB PO ×2 (09:46→17:35)
[2018-03-31] MEDS: FINASTERIDE 5 MG TAB PO (09:46)
[2018-03-31] MEDS: DOXYCYCLINE HYCLATE 100 MG TAB PO ×2 (09:46→21:29)
[2018-03-31] MEDS: DOCUSATE SODIUM 100 MG CAP PO ×2 (09:46→21:29)
[2018-03-31] MEDS: LOSARTAN 50 MG TAB PO (09:46)
[2018-03-31] MEDS: CLOBETASOL PROP 0.05% OINT 30 GM TOP ×2 (09:47→21:30)
[2018-03-31] MEDS: CHLORHEXIDINE ORAL RINSE 0.12%/15ML 120ML BOTTLE SSP ×2 (09:47→21:30)
[2018-03-31 10:25] LABS: ANION GAP 9 MEQ/L (8-16); BLOOD UREA NITROGEN 15 MG/DL (7-18); CALCIUM LEVEL 8.8 MG/DL (8.8-10.2); CARBON DIOXIDE LEVEL 23 MEQ/L (21-32); CHLORIDE LEVEL 102 MEQ/L (98-107); CREATININE FOR GFR 0.87 MG/DL (0.70-1.30); GLOMERULAR FILTRATION RATE > 60.0 (>42); GLUCOSE, FASTING 208 MG/DL (70-100); POTASSIUM SERUM 4.1 MEQ/L (3.5-5.1); SODIUM LEVEL 134 MEQ/L (136-145)
[2018-03-31] MEDS: SENNA 8.6 MG TAB (SENOKOT) PO (12:01)
[2018-03-31] MEDS: NovoLOG MIX 70/30 PER UNIT SC (17:06)
[2018-03-31] MEDS: BISACODYL 10 MG SUPP PR (20:00)
[2018-03-31] MEDS: LEVEMIR (INSULIN DETEMIR) 1 UNITS/0.01ML SC (21:00)
[2018-03-31] MEDS: ACETAMINOPHEN TAB 650MG DOSE (2X325MG) PO (21:29)
[2018-03-31] MEDS: zolPIDEM TARTRATE 10MG TAB PO (21:29)
[2018-04-01] MEDS: ACETAMINOPHEN TAB 650MG DOSE (2X325MG) PO ×2 (02:47→21:07)
[2018-04-01] MEDS: CIPROFLOXACIN 500 MG TAB PO (05:47)
[2018-04-01] MEDS: **hydrALAZINE** 50 MG TAB PO ×3 (05:47→21:08)
[2018-04-01 06:08] LABS: KETONE, URINE AUTO RFX NEGATIVE (NEGATIVE); MUCUS, URINE RFX SMALL (NEGATIVE); NITRITE, URINE AUTO RFX NEGATIVE (NEGATIVE); RBC, URINE AUTO RFX 11 /HPF (0-3); SQUAM EPITHELIAL CELL UR AURFX 0 /HPF (0-6); YEAST LIKE CELL URINE AUTO RFX SMALL
[2018-04-01 06:16] LABS: LEUKOCYTE ESTERASE UR AUTO RFX 2+ (NEGATIVE)
[2018-04-01 06:17] LABS: WBC, URINE AUTO RFX 80 /HPF (0-3)
[2018-04-01 07:00] LABS: BASO % 0.4 % (0.0-1.0); EOS # 0.1 10^3/uL (0.0-0.50); EOS % 1.6 % (0.0-3.0); HEMATOCRIT 39.2 % (42.0-52.0); HEMOGLOBIN 13.2 g/dl (13.5-17.5); IMMATURE GRANULOCYTE % 0.3 % (0-3.0); LYMPH # 0.8 10^3/uL (1.5-4.5); LYMPH % 9.9 % (24.0-44.0); MEAN CORPUSCULAR HEMOGLOBIN 28.3 pg (27.0-33.0); MEAN CORPUSCULAR HGB CONC 33.7 g/dl (32.0-36.5); MEAN CORPUSCULAR VOLUME 84.1 fl (80.0-96.0); MONO # 0.4 10^3/uL (0.0-0.8); MONO % 5.1 % (0.0-5.0); NEUTROPHILS # 6.3 10^3/uL (1.8-7.7); NEUTROPHILS % 82.7 % (36.0-66.0); PLATELET COUNT, AUTOMATED 175 10^3/uL (150-450); RED BLOOD COUNT 4.66 10^6/uL (4.30-6.10); RED CELL DISTRIBUTION WIDTH 13.2 % (11.5-14.5); WHITE BLOOD COUNT 7.6 10^3/uL (4.0-10.0)
[2018-04-01 07:20] LABS: ANION GAP 6 MEQ/L (8-16); BLOOD UREA NITROGEN 12 MG/DL (7-18); CALCIUM LEVEL 8.7 MG/DL (8.8-10.2); CARBON DIOXIDE LEVEL 28 MEQ/L (21-32); CHLORIDE LEVEL 100 MEQ/L (98-107); CREATININE FOR GFR 0.73 MG/DL (0.70-1.30); GLOMERULAR FILTRATION RATE > 60.0 (>42); GLUCOSE, FASTING 132 MG/DL (70-100); POTASSIUM SERUM 4.1 MEQ/L (3.5-5.1); SODIUM LEVEL 134 MEQ/L (136-145)
[2018-04-01] MEDS: LOSARTAN 50 MG TAB PO (07:50)
[2018-04-01] MEDS: HumaLOG INSULIN (NovoLOG) PER UNIT SC ×3 (07:50→17:13)
[2018-04-01] MEDS: FLUoxetine 20 MG CAP PO (07:51)
[2018-04-01] MEDS: FINASTERIDE 5 MG TAB PO (07:51)
[2018-04-01] MEDS: metFORMIN (GLUCOPHAGE) 500 MG TAB PO ×2 (07:51→17:14)
[2018-04-01] MEDS: amLODIPine 10 MG TAB PO (07:51)
[2018-04-01] MEDS: POTASSIUM CHLORIDE 10 MEQ SR TABLET PO ×2 (07:52→21:07)
[2018-04-01] MEDS: PANTOPRAZOLE 40MG TAB (PROTONIX) PO (07:52)
[2018-04-01] MEDS: METOPROLOL TART 25 MG TABLET PO ×2 (07:52→21:08)
[2018-04-01] MEDS: ATORVASTATIN 20 MG TAB PO (07:52)
[2018-04-01] MEDS: DOXYCYCLINE HYCLATE 100 MG TAB PO ×2 (07:52→21:06)
[2018-04-01] MEDS: DOCUSATE SODIUM 100 MG CAP PO ×2 (07:53→21:07)
[2018-04-01] MEDS: CHLORHEXIDINE ORAL RINSE 0.12%/15ML 120ML BOTTLE SSP ×2 (07:53→21:09)
[2018-04-01] MEDS: SODIUM CHLORIDE 1 GM TAB PO ×3 (07:53→21:06)
[2018-04-01] MEDS: CLOBETASOL PROP 0.05% OINT 30 GM TOP ×2 (07:54→21:08)
[2018-04-01 10:58] LABS: BEDSIDE GLUCOSE 131 MG/DL (83-110)
[2018-04-01 10:58] LABS: BEDSIDE GLUCOSE 114 MG/DL (83-110)
[2018-04-01 10:58] LABS: BEDSIDE GLUCOSE 283 MG/DL (83-110)
[2018-04-01 10:58] LABS: BEDSIDE GLUCOSE 147 MG/DL (83-110)
[2018-04-01 10:58] LABS: BEDSIDE GLUCOSE 143 MG/DL (83-110)
[2018-04-01 10:58] LABS: BEDSIDE GLUCOSE 161 MG/DL (83-110)
[2018-04-01 10:58] LABS: BEDSIDE GLUCOSE 180 MG/DL (83-110)
[2018-04-01 11:53] LABS: BEDSIDE GLUCOSE 128 MG/DL (83-110)
[2018-04-01] MEDS: SENNA 8.6 MG TAB (SENOKOT) PO (12:46)
[2018-04-01 17:03] LABS: BEDSIDE GLUCOSE 245 MG/DL (83-110)
[2018-04-01] MEDS: NovoLOG MIX 70/30 PER UNIT SC (17:13)
[2018-04-01 19:15] LABS: BEDSIDE GLUCOSE 117 MG/DL (83-110)
[2018-04-01] MEDS: BISACODYL 10 MG SUPP PR (19:59)
[2018-04-01] MEDS: zolPIDEM TARTRATE 10MG TAB PO (21:06)
[2018-04-01] MEDS: LEVEMIR (INSULIN DETEMIR) 1 UNITS/0.01ML SC (21:09)
[2018-04-02 05:18] LABS: BEDSIDE GLUCOSE 113 MG/DL (83-110)
[2018-04-02 06:14] LABS: HEMATOCRIT 39.9 % (42.0-52.0); HEMOGLOBIN 13.4 g/dl (13.5-17.5); MEAN CORPUSCULAR HEMOGLOBIN 28.3 pg (27.0-33.0); MEAN CORPUSCULAR HGB CONC 33.6 g/dl (32.0-36.5); MEAN CORPUSCULAR VOLUME 84.2 fl (80.0-96.0); PLATELET COUNT, AUTOMATED 181 10^3/uL (150-450); RED BLOOD COUNT 4.74 10^6/uL (4.30-6.10); WHITE BLOOD COUNT 7.8 10^3/uL (4.0-10.0)
[2018-04-02] MEDS: **hydrALAZINE** 50 MG TAB PO ×3 (06:15→21:20)
[2018-04-02 06:38] LABS: ANION GAP 7 MEQ/L (8-16); BLOOD UREA NITROGEN 12 MG/DL (7-18); CALCIUM LEVEL 8.5 MG/DL (8.8-10.2); CARBON DIOXIDE LEVEL 27 MEQ/L (21-32); CHLORIDE LEVEL 101 MEQ/L (98-107); CREATININE FOR GFR 0.65 MG/DL (0.70-1.30); GLOMERULAR FILTRATION RATE > 60.0 (>42); GLUCOSE, FASTING 120 MG/DL (70-100); POTASSIUM SERUM 3.7 MEQ/L (3.5-5.1); SODIUM LEVEL 135 MEQ/L (136-145)
[2018-04-02] MEDS: HumaLOG INSULIN (NovoLOG) PER UNIT SC ×3 (08:13→17:11)
[2018-04-02] MEDS: DOXYCYCLINE HYCLATE 100 MG TAB PO ×2 (08:13→21:20)
[2018-04-02] MEDS: PANTOPRAZOLE 40MG TAB (PROTONIX) PO (08:13)
[2018-04-02] MEDS: LOSARTAN 50 MG TAB PO (08:13)
[2018-04-02] MEDS: amLODIPine 10 MG TAB PO (08:14)
[2018-04-02] MEDS: ATORVASTATIN 20 MG TAB PO (08:14)
[2018-04-02] MEDS: METOPROLOL TART 25 MG TABLET PO ×2 (08:14→21:20)
[2018-04-02] MEDS: DOCUSATE SODIUM 100 MG CAP PO ×2 (08:14→21:00)
[2018-04-02] MEDS: POTASSIUM CHLORIDE 10 MEQ SR TABLET PO ×2 (08:14→21:19)
[2018-04-02] MEDS: SODIUM CHLORIDE 1 GM TAB PO ×3 (08:14→21:20)
[2018-04-02] MEDS: FINASTERIDE 5 MG TAB PO (08:15)
[2018-04-02] MEDS: metFORMIN (GLUCOPHAGE) 500 MG TAB PO ×2 (08:15→17:12)
[2018-04-02] MEDS: CLOBETASOL PROP 0.05% OINT 30 GM TOP ×2 (08:15→21:21)
[2018-04-02] MEDS: CHLORHEXIDINE ORAL RINSE 0.12%/15ML 120ML BOTTLE SSP ×2 (08:15→21:21)
[2018-04-02] MEDS: FLUoxetine 20 MG CAP PO (08:15)
[2018-04-02] MEDS: SENNA 8.6 MG TAB (SENOKOT) PO (12:00)
[2018-04-02 12:33] LABS: BEDSIDE GLUCOSE 152 MG/DL (83-110)
[2018-04-02] MEDS: FLUCONAZOLE 50MG TABLET PO (12:37)
[2018-04-02 16:23] LABS: BEDSIDE GLUCOSE 158 MG/DL (83-110)
[2018-04-02] MEDS: NovoLOG MIX 70/30 PER UNIT SC (17:12)
[2018-04-02 19:09] LABS: BEDSIDE GLUCOSE 165 MG/DL (83-110)
[2018-04-02] MEDS: BISACODYL 10 MG SUPP PR (20:00)
[2018-04-02] MEDS: LEVEMIR (INSULIN DETEMIR) 1 UNITS/0.01ML SC (21:00)
[2018-04-02] MEDS: RAMELTEON 8 MG TAB (ROZEREM) PO (21:20)
[2018-04-02] MEDS: diphenhydrAMINE 25 MG CAP PO (23:53)
[2018-04-03] MEDS: ACETAMINOPHEN TAB 650MG DOSE (2X325MG) PO (03:46)
[2018-04-03] MEDS: **hydrALAZINE** 50 MG TAB PO (06:11)
[2018-04-03 07:28] LABS: HEMATOCRIT 40.7 % (42.0-52.0); HEMOGLOBIN 13.7 g/dl (13.5-17.5); MEAN CORPUSCULAR HEMOGLOBIN 28.4 pg (27.0-33.0); MEAN CORPUSCULAR HGB CONC 33.7 g/dl (32.0-36.5); MEAN CORPUSCULAR VOLUME 84.4 fl (80.0-96.0); PLATELET COUNT, AUTOMATED 201 10^3/uL (150-450); RED BLOOD COUNT 4.82 10^6/uL (4.30-6.10); RED CELL DISTRIBUTION WIDTH 13.2 % (11.5-14.5); WHITE BLOOD COUNT 7.7 10^3/uL (4.0-10.0)
[2018-04-03 08:06] LABS: ANION GAP 7 MEQ/L (8-16); BLOOD UREA NITROGEN 13 MG/DL (7-18); CALCIUM LEVEL 8.5 MG/DL (8.8-10.2); CARBON DIOXIDE LEVEL 28 MEQ/L (21-32); CHLORIDE LEVEL 93 MEQ/L (98-107); CREATININE FOR GFR 0.66 MG/DL (0.70-1.30); GLOMERULAR FILTRATION RATE > 60.0 (>42); GLUCOSE, FASTING 143 MG/DL (70-100); MAGNESIUM LEVEL 1.7 MG/DL (1.8-2.4); POTASSIUM SERUM 3.8 MEQ/L (3.5-5.1); SODIUM LEVEL 128 MEQ/L (136-145)
[2018-04-03] MEDS: HumaLOG INSULIN (NovoLOG) PER UNIT SC ×3 (08:34→17:09)
[2018-04-03] MEDS: amLODIPine 10 MG TAB PO (08:34)
[2018-04-03] MEDS: DOXYCYCLINE HYCLATE 100 MG TAB PO ×2 (08:35→21:09)
[2018-04-03] MEDS: POTASSIUM CHLORIDE 10 MEQ SR TABLET PO ×2 (08:35→21:09)
[2018-04-03] MEDS: FLUoxetine 20 MG CAP PO (08:35)
[2018-04-03] MEDS: DOCUSATE SODIUM 100 MG CAP PO ×2 (08:35→21:00)
[2018-04-03] MEDS: PANTOPRAZOLE 40MG TAB (PROTONIX) PO (08:35)
[2018-04-03] MEDS: ATORVASTATIN 20 MG TAB PO (08:35)
[2018-04-03] MEDS: metFORMIN (GLUCOPHAGE) 500 MG TAB PO ×2 (08:35→17:09)
[2018-04-03] MEDS: SODIUM CHLORIDE 1 GM TAB PO ×3 (08:35→21:09)
[2018-04-03] MEDS: LOSARTAN 50 MG TAB PO (08:35)
[2018-04-03] MEDS: METOPROLOL TART 25 MG TABLET PO ×2 (08:35→21:08)
[2018-04-03] MEDS: FINASTERIDE 5 MG TAB PO (08:35)
[2018-04-03] MEDS: CLOBETASOL PROP 0.05% OINT 30 GM TOP ×2 (08:36→21:10)
[2018-04-03] MEDS: CHLORHEXIDINE ORAL RINSE 0.12%/15ML 120ML BOTTLE SSP ×2 (08:36→21:10)
[2018-04-03] MEDS: NS 1,000 ML IV (10:06)
[2018-04-03] MEDS: MAG SULF 1GM/100ML (MAG RUN) 1 GM in APPROPRIATE DILUENT 1 EA IV (10:34)
[2018-04-03 10:59] LABS: OSMOLALITY URINE 561 MOSM/KG (500-800)
[2018-04-03 11:17] LABS: BEDSIDE GLUCOSE 205 MG/DL (83-110)
[2018-04-03 11:37] LABS: CHLORIDE,RANDOM URINE 77 MEQ/L; POTASSIUM RANDOM URINE 74.8 MEQ/L; SODIUM,RANDOM URINE 44 MEQ/L; TOTAL PROTEIN,RANDOM URINE 34.9 MG/DL (0.0-12.0)
[2018-04-03] MEDS: SENNA 8.6 MG TAB (SENOKOT) PO (12:00)
[2018-04-03] MEDS: **hydrALAZINE HCL** 25 MG TAB PO ×2 (15:09→21:09)
[2018-04-03 15:18] LABS: ANION GAP 9 MEQ/L (8-16); BLOOD UREA NITROGEN 16 MG/DL (7-18); CALCIUM LEVEL 7.9 MG/DL (8.8-10.2); CARBON DIOXIDE LEVEL 24 MEQ/L (21-32); CHLORIDE LEVEL 95 MEQ/L (98-107); CREATININE FOR GFR 0.76 MG/DL (0.70-1.30); GLOMERULAR FILTRATION RATE > 60.0 (>42); GLUCOSE, FASTING 154 MG/DL (70-100); POTASSIUM SERUM 4.3 MEQ/L (3.5-5.1); SODIUM LEVEL 128 MEQ/L (136-145)
[2018-04-03 16:21] LABS: BEDSIDE GLUCOSE 143 MG/DL (83-110)
[2018-04-03] MEDS: NovoLOG MIX 70/30 PER UNIT SC (17:09)
[2018-04-03 19:41] LABS: BEDSIDE GLUCOSE 158 MG/DL (83-110)
[2018-04-03] MEDS: BISACODYL 10 MG SUPP PR (20:00)
[2018-04-03] MEDS: TEMAZEPAM 15 MG CAP PO (21:09)
[2018-04-03] MEDS: LEVEMIR (INSULIN DETEMIR) 1 UNITS/0.01ML SC (21:10)
[2018-04-04] MEDS: **hydrALAZINE HCL** 25 MG TAB PO ×3 (05:53→21:18)
[2018-04-04 06:49] LABS: HEMATOCRIT 39.8 % (42.0-52.0); HEMOGLOBIN 13.5 g/dl (13.5-17.5); MEAN CORPUSCULAR HEMOGLOBIN 28.4 pg (27.0-33.0); MEAN CORPUSCULAR HGB CONC 33.9 g/dl (32.0-36.5); MEAN CORPUSCULAR VOLUME 83.6 fl (80.0-96.0); PLATELET COUNT, AUTOMATED 178 10^3/uL (150-450); RED BLOOD COUNT 4.76 10^6/uL (4.30-6.10); RED CELL DISTRIBUTION WIDTH 13.2 % (11.5-14.5); WHITE BLOOD COUNT 7.4 10^3/uL (4.0-10.0)
[2018-04-04 07:14] LABS: ANION GAP 8 MEQ/L (8-16); BLOOD UREA NITROGEN 12 MG/DL (7-18); CALCIUM LEVEL 7.9 MG/DL (8.8-10.2); CARBON DIOXIDE LEVEL 24 MEQ/L (21-32); CHLORIDE LEVEL 99 MEQ/L (98-107); GLOMERULAR FILTRATION RATE > 60.0 (>42); GLUCOSE, FASTING 127 MG/DL (70-100); POTASSIUM SERUM 3.9 MEQ/L (3.5-5.1); SODIUM LEVEL 131 MEQ/L (136-145)
[2018-04-04] MEDS: HumaLOG INSULIN (NovoLOG) PER UNIT SC ×3 (07:30→17:08)
[2018-04-04] MEDS: PANTOPRAZOLE 40MG TAB (PROTONIX) PO (08:28)
[2018-04-04] MEDS: DOCUSATE SODIUM 100 MG CAP PO ×2 (08:28→20:55)
[2018-04-04] MEDS: SODIUM CHLORIDE 1 GM TAB PO ×3 (08:28→21:16)
[2018-04-04] MEDS: FINASTERIDE 5 MG TAB PO (08:28)
[2018-04-04] MEDS: metFORMIN (GLUCOPHAGE) 500 MG TAB PO ×2 (08:28→18:36)
[2018-04-04] MEDS: amLODIPine 10 MG TAB PO (08:29)
[2018-04-04] MEDS: ATORVASTATIN 20 MG TAB PO (08:29)
[2018-04-04] MEDS: DOXYCYCLINE HYCLATE 100 MG TAB PO ×2 (08:30→21:17)
[2018-04-04] MEDS: LOSARTAN 50 MG TAB PO (08:30)
[2018-04-04] MEDS: POTASSIUM CHLORIDE 10 MEQ SR TABLET PO ×2 (08:31→21:17)
[2018-04-04] MEDS: METOPROLOL TART 25 MG TABLET PO ×2 (08:31→21:17)
[2018-04-04] MEDS: CHLORHEXIDINE ORAL RINSE 0.12%/15ML 120ML BOTTLE SSP ×2 (08:32→21:18)
[2018-04-04] MEDS: CLOBETASOL PROP 0.05% OINT 30 GM TOP ×2 (08:32→21:19)
[2018-04-04] MEDS: SENNA 8.6 MG TAB (SENOKOT) PO (12:00)
[2018-04-04 12:16] LABS: BEDSIDE GLUCOSE 237 MG/DL (83-110)
[2018-04-04 16:47] LABS: BEDSIDE GLUCOSE 91 MG/DL (83-110)
[2018-04-04] MEDS: NovoLOG MIX 70/30 PER UNIT SC (17:08)
[2018-04-04] MEDS: BISACODYL 10 MG SUPP PR (19:23)
[2018-04-04 19:51] LABS: BEDSIDE GLUCOSE 192 MG/DL (83-110)
[2018-04-04] MEDS: LEVEMIR (INSULIN DETEMIR) 1 UNITS/0.01ML SC (21:18)
[2018-04-04] MEDS: TEMAZEPAM 15 MG CAP PO (21:18)
[2018-04-04] MEDS: ACETAMINOPHEN TAB 650MG DOSE (2X325MG) PO (21:18)
[2018-04-05 05:29] LABS: BEDSIDE GLUCOSE 114 MG/DL (83-110)
[2018-04-05] MEDS: **hydrALAZINE HCL** 25 MG TAB PO ×3 (05:41→21:11)
[2018-04-05 07:21] LABS: HEMATOCRIT 41.3 % (42.0-52.0); HEMOGLOBIN 13.8 g/dl (13.5-17.5); MEAN CORPUSCULAR HEMOGLOBIN 28.2 pg (27.0-33.0); MEAN CORPUSCULAR HGB CONC 33.4 g/dl (32.0-36.5); MEAN CORPUSCULAR VOLUME 84.3 fl (80.0-96.0); PLATELET COUNT, AUTOMATED 172 10^3/uL (150-450); RED CELL DISTRIBUTION WIDTH 13.5 % (11.5-14.5); WHITE BLOOD COUNT 7.6 10^3/uL (4.0-10.0)
[2018-04-05 07:43] LABS: ANION GAP 8 MEQ/L (8-16); BLOOD UREA NITROGEN 13 MG/DL (7-18); CALCIUM LEVEL 8.6 MG/DL (8.8-10.2); CARBON DIOXIDE LEVEL 25 MEQ/L (21-32); CHLORIDE LEVEL 101 MEQ/L (98-107); CREATININE FOR GFR 0.69 MG/DL (0.70-1.30); GLOMERULAR FILTRATION RATE > 60.0 (>42); GLUCOSE, FASTING 121 MG/DL (70-100); MAGNESIUM LEVEL 2.1 MG/DL (1.8-2.4); POTASSIUM SERUM 4.2 MEQ/L (3.5-5.1); SODIUM LEVEL 134 MEQ/L (136-145)
[2018-04-05] MEDS: PANTOPRAZOLE 40MG TAB (PROTONIX) PO (08:55)
[2018-04-05] MEDS: DOXYCYCLINE HYCLATE 100 MG TAB PO ×2 (08:55→21:11)
[2018-04-05] MEDS: SODIUM CHLORIDE 1 GM TAB PO ×3 (08:55→21:09)
[2018-04-05] MEDS: HumaLOG INSULIN (NovoLOG) PER UNIT SC ×3 (08:55→17:04)
[2018-04-05] MEDS: metFORMIN (GLUCOPHAGE) 500 MG TAB PO ×2 (08:56→17:03)
[2018-04-05] MEDS: POTASSIUM CHLORIDE 10 MEQ SR TABLET PO ×2 (08:56→21:10)
[2018-04-05] MEDS: amLODIPine 10 MG TAB PO (08:56)
[2018-04-05] MEDS: ATORVASTATIN 20 MG TAB PO (08:56)
[2018-04-05] MEDS: LOSARTAN 50 MG TAB PO (08:56)
[2018-04-05] MEDS: FINASTERIDE 5 MG TAB PO (08:57)
[2018-04-05] MEDS: METOPROLOL TART 25 MG TABLET PO ×2 (08:57→21:10)
[2018-04-05] MEDS: CHLORHEXIDINE ORAL RINSE 0.12%/15ML 120ML BOTTLE SSP ×2 (08:57→21:12)
[2018-04-05] MEDS: DOCUSATE SODIUM 100 MG CAP PO ×2 (08:57→21:09)
[2018-04-05] MEDS: CLOBETASOL PROP 0.05% OINT 30 GM TOP ×2 (08:58→21:11)
[2018-04-05] MEDS: SENNA 8.6 MG TAB (SENOKOT) PO (12:00)
[2018-04-05 12:10] LABS: BEDSIDE GLUCOSE 149 MG/DL (83-110)
[2018-04-05 16:33] LABS: BEDSIDE GLUCOSE 168 MG/DL (83-110)
[2018-04-05] MEDS: NovoLOG MIX 70/30 PER UNIT SC (17:04)
[2018-04-05] MEDS: BISACODYL 10 MG SUPP PR (19:39)
[2018-04-05 20:02] LABS: BEDSIDE GLUCOSE 217 MG/DL (83-110)
[2018-04-05] MEDS: TEMAZEPAM 15 MG CAP PO (21:09)
[2018-04-05] MEDS: ACETAMINOPHEN TAB 650MG DOSE (2X325MG) PO (21:10)
[2018-04-05] MEDS: LEVEMIR (INSULIN DETEMIR) 1 UNITS/0.01ML SC (21:11)
[2018-04-06] MEDS: diphenhydrAMINE 50 MG CAP PO (00:31)
[2018-04-06] MEDS: **hydrALAZINE HCL** 25 MG TAB PO ×3 (05:40→21:24)
[2018-04-06 05:43] LABS: BEDSIDE GLUCOSE 125 MG/DL (83-110)
[2018-04-06 07:33] LABS: HEMATOCRIT 39.5 % (42.0-52.0); HEMOGLOBIN 13.3 g/dl (13.5-17.5); MEAN CORPUSCULAR HEMOGLOBIN 27.9 pg (27.0-33.0); MEAN CORPUSCULAR HGB CONC 33.7 g/dl (32.0-36.5); MEAN CORPUSCULAR VOLUME 82.8 fl (80.0-96.0); PLATELET COUNT, AUTOMATED 159 10^3/uL (150-450); RED BLOOD COUNT 4.77 10^6/uL (4.30-6.10); RED CELL DISTRIBUTION WIDTH 13.6 % (11.5-14.5); WHITE BLOOD COUNT 5.7 10^3/uL (4.0-10.0)
[2018-04-06 07:52] LABS: ANION GAP 6 MEQ/L (8-16); BLOOD UREA NITROGEN 12 MG/DL (7-18); CALCIUM LEVEL 8.4 MG/DL (8.8-10.2); CARBON DIOXIDE LEVEL 27 MEQ/L (21-32); CHLORIDE LEVEL 102 MEQ/L (98-107); CREATININE FOR GFR 0.69 MG/DL (0.70-1.30); GLOMERULAR FILTRATION RATE > 60.0 (>42); GLUCOSE, FASTING 130 MG/DL (70-100); POTASSIUM SERUM 4.1 MEQ/L (3.5-5.1); SODIUM LEVEL 135 MEQ/L (136-145)
[2018-04-06] MEDS: DOCUSATE SODIUM 100 MG CAP PO ×2 (08:24→21:25)
[2018-04-06] MEDS: SODIUM CHLORIDE 1 GM TAB PO ×3 (08:24→21:25)
[2018-04-06] MEDS: PANTOPRAZOLE 40MG TAB (PROTONIX) PO (08:24)
[2018-04-06] MEDS: DOXYCYCLINE HYCLATE 100 MG TAB PO ×2 (08:24→21:24)
[2018-04-06] MEDS: ATORVASTATIN 20 MG TAB PO (08:24)
[2018-04-06] MEDS: HumaLOG INSULIN (NovoLOG) PER UNIT SC ×3 (08:24→17:10)
[2018-04-06] MEDS: amLODIPine 10 MG TAB PO (08:25)
[2018-04-06] MEDS: POTASSIUM CHLORIDE 10 MEQ SR TABLET PO ×2 (08:25→21:25)
[2018-04-06] MEDS: metFORMIN (GLUCOPHAGE) 500 MG TAB PO ×2 (08:25→17:10)
[2018-04-06] MEDS: FINASTERIDE 5 MG TAB PO (08:25)
[2018-04-06] MEDS: LOSARTAN 50 MG TAB PO (08:26)
[2018-04-06] MEDS: METOPROLOL TART 25 MG TABLET PO ×2 (08:26→21:25)
[2018-04-06] MEDS: CHLORHEXIDINE ORAL RINSE 0.12%/15ML 120ML BOTTLE SSP ×2 (08:27→21:26)
[2018-04-06] MEDS: CLOBETASOL PROP 0.05% OINT 30 GM TOP ×2 (08:27→21:26)
[2018-04-06 11:35] LABS: BEDSIDE GLUCOSE 164 MG/DL (83-110)
[2018-04-06] MEDS: SENNA 8.6 MG TAB (SENOKOT) PO (12:28)
[2018-04-06 17:00] LABS: BEDSIDE GLUCOSE 120 MG/DL (83-110)
[2018-04-06] MEDS: NovoLOG MIX 70/30 PER UNIT SC (17:10)
[2018-04-06] MEDS: BISACODYL 10 MG SUPP PR (20:00)
[2018-04-06 20:49] LABS: BEDSIDE GLUCOSE 171 MG/DL (83-110)
[2018-04-06] MEDS: ACETAMINOPHEN TAB 650MG DOSE (2X325MG) PO (21:25)
[2018-04-06] MEDS: TEMAZEPAM 15 MG CAP PO (21:25)
[2018-04-06] MEDS: LEVEMIR (INSULIN DETEMIR) 1 UNITS/0.01ML SC (21:26)
[2018-04-07] MEDS: **hydrALAZINE HCL** 25 MG TAB PO ×3 (05:48→21:39)
[2018-04-07] MEDS: ACETAMINOPHEN TAB 650MG DOSE (2X325MG) PO (05:49)
[2018-04-07 07:06] LABS: HEMATOCRIT 40.6 % (42.0-52.0); HEMOGLOBIN 13.7 g/dl (13.5-17.5); MEAN CORPUSCULAR HEMOGLOBIN 28.5 pg (27.0-33.0); MEAN CORPUSCULAR HGB CONC 33.7 g/dl (32.0-36.5); MEAN CORPUSCULAR VOLUME 84.6 fl (80.0-96.0); PLATELET COUNT, AUTOMATED 161 10^3/uL (150-450); RED CELL DISTRIBUTION WIDTH 13.6 % (11.5-14.5); WHITE BLOOD COUNT 5.9 10^3/uL (4.0-10.0)
[2018-04-07 07:27] LABS: ANION GAP 7 MEQ/L (8-16); BLOOD UREA NITROGEN 13 MG/DL (7-18); CALCIUM LEVEL 8.4 MG/DL (8.8-10.2); CARBON DIOXIDE LEVEL 26 MEQ/L (21-32); CHLORIDE LEVEL 101 MEQ/L (98-107); CREATININE FOR GFR 0.71 MG/DL (0.70-1.30); GLOMERULAR FILTRATION RATE > 60.0 (>42); GLUCOSE, FASTING 126 MG/DL (70-100); MAGNESIUM LEVEL 1.9 MG/DL (1.8-2.4); SODIUM LEVEL 134 MEQ/L (136-145)
[2018-04-07] MEDS: DOXYCYCLINE HYCLATE 100 MG TAB PO ×2 (08:17→21:40)
[2018-04-07] MEDS: CLOBETASOL PROP 0.05% OINT 30 GM TOP ×2 (08:17→21:41)
[2018-04-07] MEDS: metFORMIN (GLUCOPHAGE) 500 MG TAB PO ×2 (08:17→17:06)
[2018-04-07] MEDS: ATORVASTATIN 20 MG TAB PO (08:17)
[2018-04-07] MEDS: PANTOPRAZOLE 40MG TAB (PROTONIX) PO (08:17)
[2018-04-07] MEDS: METOPROLOL TART 25 MG TABLET PO ×2 (08:17→21:41)
[2018-04-07] MEDS: CHLORHEXIDINE ORAL RINSE 0.12%/15ML 120ML BOTTLE SSP ×2 (08:17→21:41)
[2018-04-07] MEDS: LOSARTAN 50 MG TAB PO (08:17)
[2018-04-07] MEDS: FINASTERIDE 5 MG TAB PO (08:17)
[2018-04-07] MEDS: SODIUM CHLORIDE 1 GM TAB PO ×3 (08:18→21:40)
[2018-04-07] MEDS: POTASSIUM CHLORIDE 10 MEQ SR TABLET PO ×2 (08:18→21:40)
[2018-04-07] MEDS: amLODIPine 10 MG TAB PO (08:18)
[2018-04-07] MEDS: DOCUSATE SODIUM 100 MG CAP PO ×2 (08:18→21:41)
[2018-04-07] MEDS: HumaLOG INSULIN (NovoLOG) PER UNIT SC (08:18)
[2018-04-07 11:59] LABS: BEDSIDE GLUCOSE 165 MG/DL (83-110)
[2018-04-07] MEDS: SENNA 8.6 MG TAB (SENOKOT) PO (12:00)
[2018-04-07 16:36] LABS: BEDSIDE GLUCOSE 136 MG/DL (83-110)
[2018-04-07] MEDS: BISACODYL 10 MG SUPP PR (19:56)
[2018-04-07 21:25] LABS: BEDSIDE GLUCOSE 157 MG/DL (83-110)
[2018-04-07] MEDS: TEMAZEPAM 15 MG CAP PO (21:39)
[2018-04-07] MEDS: MIRTAZAPINE 15 MG TAB PO (21:40)
[2018-04-07] MEDS: LEVEMIR (INSULIN DETEMIR) 1 UNITS/0.01ML SC (21:41)
[2018-04-08] MEDS: diphenhydrAMINE 50 MG CAP PO (01:25)
[2018-04-08] MEDS: **hydrALAZINE HCL** 25 MG TAB PO ×3 (05:31→22:27)
[2018-04-08 07:06] LABS: HEMATOCRIT 40.1 % (42.0-52.0); HEMOGLOBIN 13.6 g/dl (13.5-17.5); MEAN CORPUSCULAR HEMOGLOBIN 28.6 pg (27.0-33.0); MEAN CORPUSCULAR HGB CONC 33.9 g/dl (32.0-36.5); MEAN CORPUSCULAR VOLUME 84.2 fl (80.0-96.0); PLATELET COUNT, AUTOMATED 182 10^3/uL (150-450); RED BLOOD COUNT 4.76 10^6/uL (4.30-6.10); RED CELL DISTRIBUTION WIDTH 13.7 % (11.5-14.5); WHITE BLOOD COUNT 5.6 10^3/uL (4.0-10.0)
[2018-04-08 07:23] LABS: ANION GAP 7 MEQ/L (8-16); BLOOD UREA NITROGEN 12 MG/DL (7-18); CALCIUM LEVEL 8.7 MG/DL (8.8-10.2); CARBON DIOXIDE LEVEL 28 MEQ/L (21-32); CHLORIDE LEVEL 101 MEQ/L (98-107); CREATININE FOR GFR 0.73 MG/DL (0.70-1.30); GLOMERULAR FILTRATION RATE > 60.0 (>42); GLUCOSE, FASTING 115 MG/DL (70-100); MAGNESIUM LEVEL 2.1 MG/DL (1.8-2.4); POTASSIUM SERUM 4.1 MEQ/L (3.5-5.1); SODIUM LEVEL 136 MEQ/L (136-145)
[2018-04-08] MEDS: DOCUSATE SODIUM 100 MG CAP PO ×2 (08:39→20:52)
[2018-04-08] MEDS: LOSARTAN 50 MG TAB PO (08:40)
[2018-04-08] MEDS: PANTOPRAZOLE 40MG TAB (PROTONIX) PO (08:40)
[2018-04-08] MEDS: FINASTERIDE 5 MG TAB PO (08:40)
[2018-04-08] MEDS: METOPROLOL TART 25 MG TABLET PO ×2 (08:40→20:53)
[2018-04-08] MEDS: SODIUM CHLORIDE 1 GM TAB PO ×3 (08:40→20:52)
[2018-04-08] MEDS: DOXYCYCLINE HYCLATE 100 MG TAB PO ×2 (08:40→20:52)
[2018-04-08] MEDS: amLODIPine 10 MG TAB PO (08:41)
[2018-04-08] MEDS: ATORVASTATIN 20 MG TAB PO (08:41)
[2018-04-08] MEDS: metFORMIN (GLUCOPHAGE) 500 MG TAB PO ×2 (08:41→16:40)
[2018-04-08] MEDS: POTASSIUM CHLORIDE 10 MEQ SR TABLET PO ×2 (08:41→20:53)
[2018-04-08] MEDS: CLOBETASOL PROP 0.05% OINT 30 GM TOP ×2 (08:42→21:00)
[2018-04-08] MEDS: CHLORHEXIDINE ORAL RINSE 0.12%/15ML 120ML BOTTLE SSP ×2 (08:42→21:00)
[2018-04-08 11:37] LABS: BEDSIDE GLUCOSE 210 MG/DL (83-110)
[2018-04-08] MEDS: SENNA 8.6 MG TAB (SENOKOT) PO (13:28)
[2018-04-08 16:36] LABS: BEDSIDE GLUCOSE 132 MG/DL (83-110)
[2018-04-08] MEDS: BISACODYL 10 MG SUPP PR (20:00)
[2018-04-08] MEDS: TEMAZEPAM 15 MG CAP PO (20:52)
[2018-04-08] MEDS: MIRTAZAPINE 15 MG TAB PO (20:52)
[2018-04-08] MEDS: MICONAZOLE 2 % POWDER (DESENEX) TOP (21:00)
[2018-04-08] MEDS: LEVEMIR (INSULIN DETEMIR) 1 UNITS/0.01ML SC (21:00)
[2018-04-08 21:52] LABS: BEDSIDE GLUCOSE 164 MG/DL (83-110)
[2018-04-09] MEDS: **hydrALAZINE HCL** 25 MG TAB PO ×3 (06:01→21:45)
[2018-04-09 07:11] LABS: HEMATOCRIT 41.5 % (42.0-52.0); HEMOGLOBIN 13.8 g/dl (13.5-17.5); MEAN CORPUSCULAR HEMOGLOBIN 28.5 pg (27.0-33.0); MEAN CORPUSCULAR HGB CONC 33.3 g/dl (32.0-36.5); MEAN CORPUSCULAR VOLUME 85.6 fl (80.0-96.0); PLATELET COUNT, AUTOMATED 177 10^3/uL (150-450); RED BLOOD COUNT 4.85 10^6/uL (4.30-6.10); RED CELL DISTRIBUTION WIDTH 14.1 % (11.5-14.5); WHITE BLOOD COUNT 7.3 10^3/uL (4.0-10.0)
[2018-04-09 07:43] LABS: ANION GAP 8 MEQ/L (8-16); BLOOD UREA NITROGEN 19 MG/DL (7-18); CALCIUM LEVEL 8.6 MG/DL (8.8-10.2); CARBON DIOXIDE LEVEL 23 MEQ/L (21-32); CHLORIDE LEVEL 103 MEQ/L (98-107); CREATININE FOR GFR 0.78 MG/DL (0.70-1.30); GLOMERULAR FILTRATION RATE > 60.0 (>42); GLUCOSE, FASTING 126 MG/DL (70-100); MAGNESIUM LEVEL 1.8 MG/DL (1.8-2.4); POTASSIUM SERUM 4.4 MEQ/L (3.5-5.1); SODIUM LEVEL 134 MEQ/L (136-145)
[2018-04-09] MEDS: SODIUM CHLORIDE 1 GM TAB PO ×3 (08:18→21:44)
[2018-04-09] MEDS: amLODIPine 10 MG TAB PO (08:18)
[2018-04-09] MEDS: MICONAZOLE 2 % POWDER (DESENEX) TOP ×2 (08:18→21:46)
[2018-04-09] MEDS: PANTOPRAZOLE 40MG TAB (PROTONIX) PO (08:18)
[2018-04-09] MEDS: metFORMIN (GLUCOPHAGE) 500 MG TAB PO ×2 (08:19→17:00)
[2018-04-09] MEDS: ATORVASTATIN 20 MG TAB PO (08:19)
[2018-04-09] MEDS: POTASSIUM CHLORIDE 10 MEQ SR TABLET PO ×2 (08:19→21:44)
[2018-04-09] MEDS: DOXYCYCLINE HYCLATE 100 MG TAB PO ×2 (08:19→21:43)
[2018-04-09] MEDS: LOSARTAN 50 MG TAB PO (08:19)
[2018-04-09] MEDS: DOCUSATE SODIUM 100 MG CAP PO ×2 (08:20→21:45)
[2018-04-09] MEDS: CHLORHEXIDINE ORAL RINSE 0.12%/15ML 120ML BOTTLE SSP ×2 (08:20→21:46)
[2018-04-09] MEDS: METOPROLOL TART 25 MG TABLET PO ×2 (08:20→21:45)
[2018-04-09] MEDS: FINASTERIDE 5 MG TAB PO (08:20)
[2018-04-09] MEDS: CLOBETASOL PROP 0.05% OINT 30 GM TOP ×2 (08:21→21:48)
[2018-04-09 11:19] LABS: BEDSIDE GLUCOSE 205 MG/DL (83-110)
[2018-04-09] MEDS: SENNA 8.6 MG TAB (SENOKOT) PO (11:53)
[2018-04-09] MEDS: DONEPEZIL 5 MG TAB PO (14:33)
[2018-04-09 16:30] LABS: BEDSIDE GLUCOSE 147 MG/DL (83-110)
[2018-04-09] MEDS: BISACODYL 10 MG SUPP PR (20:00)
[2018-04-09 20:24] LABS: BEDSIDE GLUCOSE 191 MG/DL (83-110)
[2018-04-09] MEDS ORDERED: TEMAZEPAM 15 MG CAP PO (21:00)
[2018-04-09] MEDS: ACETAMINOPHEN TAB 650MG DOSE (2X325MG) PO (21:44)
[2018-04-09] MEDS: MIRTAZAPINE 15 MG TAB PO (21:45)
[2018-04-09] MEDS: LEVEMIR (INSULIN DETEMIR) 1 UNITS/0.01ML SC (21:47)
[2018-04-09] MEDS: TEMAZEPAM 15 MG CAP PO (23:15)
[2018-04-10] MEDS: **hydrALAZINE HCL** 25 MG TAB PO ×3 (05:49→21:47)
[2018-04-10 06:58] LABS: HEMATOCRIT 38.9 % (42.0-52.0); HEMOGLOBIN 13.1 g/dl (13.5-17.5); MEAN CORPUSCULAR HEMOGLOBIN 28.4 pg (27.0-33.0); MEAN CORPUSCULAR HGB CONC 33.7 g/dl (32.0-36.5); MEAN CORPUSCULAR VOLUME 84.2 fl (80.0-96.0); PLATELET COUNT, AUTOMATED 158 10^3/uL (150-450); RED BLOOD COUNT 4.62 10^6/uL (4.30-6.10); WHITE BLOOD COUNT 6.6 10^3/uL (4.0-10.0)
[2018-04-10 07:35] LABS: ANION GAP 9 MEQ/L (8-16); BLOOD UREA NITROGEN 16 MG/DL (7-18); CALCIUM LEVEL 8.1 MG/DL (8.8-10.2); CARBON DIOXIDE LEVEL 22 MEQ/L (21-32); CHLORIDE LEVEL 105 MEQ/L (98-107); CREATININE FOR GFR 0.66 MG/DL (0.70-1.30); GLOMERULAR FILTRATION RATE > 60.0 (>42); GLUCOSE, FASTING 117 MG/DL (70-100); MAGNESIUM LEVEL 1.6 MG/DL (1.8-2.4); POTASSIUM SERUM 4.1 MEQ/L (3.5-5.1); SODIUM LEVEL 136 MEQ/L (136-145)
[2018-04-10] MEDS: FINASTERIDE 5 MG TAB PO (08:49)
[2018-04-10] MEDS: LOSARTAN 50 MG TAB PO (08:49)
[2018-04-10] MEDS: ATORVASTATIN 20 MG TAB PO (08:49)
[2018-04-10] MEDS: DOXYCYCLINE HYCLATE 100 MG TAB PO ×2 (08:49→21:47)
[2018-04-10] MEDS: DONEPEZIL 5 MG TAB PO (08:49)
[2018-04-10] MEDS: SODIUM CHLORIDE 1 GM TAB PO ×3 (08:49→21:46)
[2018-04-10] MEDS: POTASSIUM CHLORIDE 10 MEQ SR TABLET PO ×2 (08:50→21:46)
[2018-04-10] MEDS: metFORMIN (GLUCOPHAGE) 500 MG TAB PO ×2 (08:50→17:37)
[2018-04-10] MEDS: METOPROLOL TART 25 MG TABLET PO ×2 (08:50→21:47)
[2018-04-10] MEDS: PANTOPRAZOLE 40MG TAB (PROTONIX) PO (08:50)
[2018-04-10] MEDS: ACETAMINOPHEN TAB 650MG DOSE (2X325MG) PO ×2 (08:50→21:45)
[2018-04-10] MEDS: CHLORHEXIDINE ORAL RINSE 0.12%/15ML 120ML BOTTLE SSP (08:51)
[2018-04-10] MEDS: MICONAZOLE 2 % POWDER (DESENEX) TOP ×2 (08:51→22:00)
[2018-04-10] MEDS: amLODIPine 10 MG TAB PO (08:51)
[2018-04-10] MEDS: DOCUSATE SODIUM 100 MG CAP PO ×2 (08:51→21:45)
[2018-04-10] MEDS: CLOBETASOL PROP 0.05% OINT 30 GM TOP ×2 (08:51→21:50)
[2018-04-10] MEDS: SENNA 8.6 MG TAB (SENOKOT) PO (11:13)
[2018-04-10 12:03] LABS: BEDSIDE GLUCOSE 191 MG/DL (83-110)
[2018-04-10 17:10] LABS: BEDSIDE GLUCOSE 164 MG/DL (83-110)
[2018-04-10] MEDS: BISACODYL 10 MG SUPP PR (20:00)
[2018-04-10 20:21] LABS: BEDSIDE GLUCOSE 171 MG/DL (83-110)
[2018-04-10] MEDS: MIRTAZAPINE 15 MG TAB PO (21:48)
[2018-04-10] MEDS: CHLORHEXIDINE GLUCONATE 0.12 % 15ML UDC (PERIDEX ORAL RINSE) SSP (21:59)
[2018-04-10] MEDS: LEVEMIR (INSULIN DETEMIR) 1 UNITS/0.01ML SC (22:00)
[2018-04-11] MEDS: **hydrALAZINE HCL** 25 MG TAB PO ×3 (06:22→22:04)
[2018-04-11 06:44] LABS: HEMOGLOBIN 13.4 g/dl (13.5-17.5); MEAN CORPUSCULAR HEMOGLOBIN 28.7 pg (27.0-33.0); MEAN CORPUSCULAR HGB CONC 33.5 g/dl (32.0-36.5); MEAN CORPUSCULAR VOLUME 85.7 fl (80.0-96.0); PLATELET COUNT, AUTOMATED 172 10^3/uL (150-450); RED BLOOD COUNT 4.67 10^6/uL (4.30-6.10); WHITE BLOOD COUNT 6.3 10^3/uL (4.0-10.0)
[2018-04-11 07:00] LABS: ANION GAP 8 MEQ/L (8-16); BLOOD UREA NITROGEN 16 MG/DL (7-18); CALCIUM LEVEL 8.5 MG/DL (8.8-10.2); CARBON DIOXIDE LEVEL 27 MEQ/L (21-32); CHLORIDE LEVEL 103 MEQ/L (98-107); CREATININE FOR GFR 0.79 MG/DL (0.70-1.30); GLOMERULAR FILTRATION RATE > 60.0 (>42); GLUCOSE, FASTING 125 MG/DL (70-100); MAGNESIUM LEVEL 1.7 MG/DL (1.8-2.4); SODIUM LEVEL 138 MEQ/L (136-145)
[2018-04-11] MEDS: CLOBETASOL PROP 0.05% OINT 30 GM TOP ×2 (09:00→23:18)
[2018-04-11] MEDS: MICONAZOLE 2 % POWDER (DESENEX) TOP ×2 (09:00→23:18)
[2018-04-11] MEDS: PANTOPRAZOLE 40MG TAB (PROTONIX) PO (09:40)
[2018-04-11] MEDS: CHLORHEXIDINE GLUCONATE 0.12 % 15ML UDC (PERIDEX ORAL RINSE) SSP ×2 (09:40→23:17)
[2018-04-11] MEDS: POTASSIUM CHLORIDE 10 MEQ SR TABLET PO ×2 (09:40→22:05)
[2018-04-11] MEDS: ATORVASTATIN 20 MG TAB PO (09:40)
[2018-04-11] MEDS: SODIUM CHLORIDE 1 GM TAB PO ×3 (09:41→22:02)
[2018-04-11] MEDS: metFORMIN (GLUCOPHAGE) 500 MG TAB PO ×2 (09:41→17:26)
[2018-04-11] MEDS: DOXYCYCLINE HYCLATE 100 MG TAB PO ×2 (09:41→22:02)
[2018-04-11] MEDS: FINASTERIDE 5 MG TAB PO (09:41)
[2018-04-11] MEDS: DOCUSATE SODIUM 100 MG CAP PO ×2 (09:41→22:02)
[2018-04-11] MEDS: DONEPEZIL 5 MG TAB PO (09:41)
[2018-04-11] MEDS: LOSARTAN 50 MG TAB PO (09:41)
[2018-04-11] MEDS: METOPROLOL TART 25 MG TABLET PO ×2 (09:42→22:04)
[2018-04-11] MEDS: SENNA 8.6 MG TAB (SENOKOT) PO (12:00)
[2018-04-11] MEDS: BISACODYL 10 MG SUPP PR (20:00)
[2018-04-11] MEDS: MIRTAZAPINE 15 MG TAB PO (22:03)
[2018-04-11] MEDS: TEMAZEPAM 7.5 MG CAP PO (22:03)
[2018-04-11] MEDS: MAGNESIUM GLUCONATE 500 MG TAB PO (22:03)
[2018-04-11] MEDS: ACETAMINOPHEN TAB 650MG DOSE (2X325MG) PO (22:03)
[2018-04-11] MEDS: LEVEMIR (INSULIN DETEMIR) 1 UNITS/0.01ML SC (22:05)
[2018-04-12] MEDS: **hydrALAZINE HCL** 25 MG TAB PO ×3 (05:04→21:46)
[2018-04-12 06:59] LABS: BEDSIDE GLUCOSE 188 MG/DL (83-110)
[2018-04-12 06:59] LABS: BEDSIDE GLUCOSE 117 MG/DL (83-110)
[2018-04-12] MEDS: CHLORHEXIDINE GLUCONATE 0.12 % 15ML UDC (PERIDEX ORAL RINSE) SSP ×2 (08:32→21:48)
[2018-04-12] MEDS: SODIUM CHLORIDE 1 GM TAB PO ×3 (08:32→21:45)
[2018-04-12] MEDS: ATORVASTATIN 20 MG TAB PO (08:33)
[2018-04-12] MEDS: FINASTERIDE 5 MG TAB PO (08:33)
[2018-04-12] MEDS: METOPROLOL TART 25 MG TABLET PO ×2 (08:33→21:46)
[2018-04-12] MEDS: PANTOPRAZOLE 40MG TAB (PROTONIX) PO (08:33)
[2018-04-12] MEDS: metFORMIN (GLUCOPHAGE) 500 MG TAB PO ×2 (08:33→17:44)
[2018-04-12] MEDS: DOCUSATE SODIUM 100 MG CAP PO ×2 (08:33→21:47)
[2018-04-12] MEDS: DOXYCYCLINE HYCLATE 100 MG TAB PO ×2 (08:33→21:45)
[2018-04-12] MEDS: LOSARTAN 50 MG TAB PO (08:34)
[2018-04-12] MEDS: POTASSIUM CHLORIDE 10 MEQ SR TABLET PO ×2 (08:34→21:46)
[2018-04-12] MEDS: DONEPEZIL 5 MG TAB PO (08:34)
[2018-04-12] MEDS: CLOBETASOL PROP 0.05% OINT 30 GM TOP ×2 (08:35→21:47)
[2018-04-12] MEDS: MICONAZOLE 2 % POWDER (DESENEX) TOP ×2 (08:36→21:47)
[2018-04-12] MEDS: SENNA 8.6 MG TAB (SENOKOT) PO (12:08)
[2018-04-12 16:52] LABS: BEDSIDE GLUCOSE 143 MG/DL (83-110)
[2018-04-12] MEDS: BISACODYL 10 MG SUPP PR (20:00)
[2018-04-12] MEDS: MIRTAZAPINE 15 MG TAB PO (21:45)
[2018-04-12] MEDS: ACETAMINOPHEN TAB 650MG DOSE (2X325MG) PO (21:45)
[2018-04-12] MEDS: TEMAZEPAM 7.5 MG CAP PO (21:45)
[2018-04-12] MEDS: MAGNESIUM GLUCONATE 500 MG TAB PO (21:47)
[2018-04-12] MEDS: LEVEMIR (INSULIN DETEMIR) 1 UNITS/0.01ML SC (21:49)
[2018-04-13 05:28] LABS: BEDSIDE GLUCOSE 108 MG/DL (83-110)
[2018-04-13] MEDS: **hydrALAZINE HCL** 25 MG TAB PO ×3 (05:58→20:56)
[2018-04-13] MEDS: ACETAMINOPHEN TAB 650MG DOSE (2X325MG) PO (06:17)
[2018-04-13] MEDS: CHLORHEXIDINE GLUCONATE 0.12 % 15ML UDC (PERIDEX ORAL RINSE) SSP ×2 (09:00→20:58)
[2018-04-13] MEDS: DOCUSATE SODIUM 100 MG CAP PO ×2 (09:08→20:54)
[2018-04-13] MEDS: POTASSIUM CHLORIDE 10 MEQ SR TABLET PO ×2 (09:08→20:56)
[2018-04-13] MEDS: LOSARTAN 50 MG TAB PO (09:08)
[2018-04-13] MEDS: PANTOPRAZOLE 40MG TAB (PROTONIX) PO (09:09)
[2018-04-13] MEDS: ATORVASTATIN 20 MG TAB PO (09:09)
[2018-04-13] MEDS: METOPROLOL TART 25 MG TABLET PO ×2 (09:09→20:55)
[2018-04-13] MEDS: FINASTERIDE 5 MG TAB PO (09:09)
[2018-04-13] MEDS: SODIUM CHLORIDE 1 GM TAB PO ×3 (09:09→20:56)
[2018-04-13] MEDS: DONEPEZIL 5 MG TAB PO (09:09)
[2018-04-13] MEDS: DOXYCYCLINE HYCLATE 100 MG TAB PO ×2 (09:09→20:54)
[2018-04-13] MEDS: metFORMIN (GLUCOPHAGE) 500 MG TAB PO ×2 (09:09→17:09)
[2018-04-13] MEDS: MICONAZOLE 2 % POWDER (DESENEX) TOP ×2 (09:10→20:59)
[2018-04-13] MEDS: CLOBETASOL PROP 0.05% OINT 30 GM TOP ×2 (09:11→20:58)
[2018-04-13] MEDS: SENNA 8.6 MG TAB (SENOKOT) PO (12:00)
[2018-04-13 16:52] LABS: BEDSIDE GLUCOSE 134 MG/DL (83-110)
[2018-04-13] MEDS: BISACODYL 10 MG SUPP PR (20:00)
[2018-04-13] MEDS: TEMAZEPAM 7.5 MG CAP PO (20:55)
[2018-04-13] MEDS: MIRTAZAPINE 15 MG TAB PO (20:55)
[2018-04-13] MEDS: MAGNESIUM GLUCONATE 500 MG TAB PO (20:57)
[2018-04-13] MEDS: LEVEMIR (INSULIN DETEMIR) 1 UNITS/0.01ML SC (20:58)
[2018-04-14] MEDS: **hydrALAZINE HCL** 25 MG TAB PO ×3 (05:36→21:28)
[2018-04-14 07:21] LABS: BEDSIDE GLUCOSE 114 MG/DL (83-110)
[2018-04-14] MEDS: ACETAMINOPHEN TAB 650MG DOSE (2X325MG) PO ×2 (08:13→20:24)
[2018-04-14] MEDS: SODIUM CHLORIDE 1 GM TAB PO (08:14)
[2018-04-14] MEDS: POTASSIUM CHLORIDE 10 MEQ SR TABLET PO ×2 (08:14→20:23)
[2018-04-14] MEDS: METOPROLOL TART 25 MG TABLET PO ×2 (08:14→20:23)
[2018-04-14] MEDS: DOXYCYCLINE HYCLATE 100 MG TAB PO ×2 (08:14→20:22)
[2018-04-14] MEDS: ATORVASTATIN 20 MG TAB PO (08:14)
[2018-04-14] MEDS: metFORMIN (GLUCOPHAGE) 500 MG TAB PO (08:14)
[2018-04-14] MEDS: PANTOPRAZOLE 40MG TAB (PROTONIX) PO (08:14)
[2018-04-14] MEDS: FINASTERIDE 5 MG TAB PO (08:14)
[2018-04-14] MEDS: DOCUSATE SODIUM 100 MG CAP PO ×2 (08:15→20:22)
[2018-04-14] MEDS: MICONAZOLE 2 % POWDER (DESENEX) TOP ×2 (08:15→20:24)
[2018-04-14] MEDS: LOSARTAN 50 MG TAB PO (08:15)
[2018-04-14] MEDS: DONEPEZIL 5 MG TAB PO (08:15)
[2018-04-14] MEDS: CLOBETASOL PROP 0.05% OINT 30 GM TOP ×2 (08:16→20:24)
[2018-04-14] MEDS: CHLORHEXIDINE GLUCONATE 0.12 % 15ML UDC (PERIDEX ORAL RINSE) SSP ×2 (08:16→20:24)
[2018-04-14] MEDS ORDERED: SODIUM CHLORIDE 1 GM TAB PO (09:00)
[2018-04-14 11:19] LABS: BASO % 0.4 % (0.0-1.0); EOS # 0.1 10^3/uL (0.0-0.50); EOS % 0.8 % (0.0-3.0); HEMATOCRIT 39.1 % (42.0-52.0); HEMOGLOBIN 13.1 g/dl (13.5-17.5); IMMATURE GRANULOCYTE % 0.3 % (0-3.0); LYMPH # 0.8 10^3/uL (1.5-4.5); LYMPH % 11.3 % (24.0-44.0); MEAN CORPUSCULAR HGB CONC 33.5 g/dl (32.0-36.5); MEAN CORPUSCULAR VOLUME 86.7 fl (80.0-96.0); MONO # 0.4 10^3/uL (0.0-0.8); MONO % 6.1 % (0.0-5.0); NEUTROPHILS # 5.7 10^3/uL (1.8-7.7); NEUTROPHILS % 81.1 % (36.0-66.0); PLATELET COUNT, AUTOMATED 204 10^3/uL (150-450); RED BLOOD COUNT 4.51 10^6/uL (4.30-6.10); RED CELL DISTRIBUTION WIDTH 13.8 % (11.5-14.5); WHITE BLOOD COUNT 7.1 10^3/uL (4.0-10.0)
[2018-04-14 11:35] LABS: BEDSIDE GLUCOSE 150 MG/DL (83-110)
[2018-04-14 11:43] LABS: ANION GAP 6 MEQ/L (8-16); BLOOD UREA NITROGEN 16 MG/DL (7-18); CALCIUM LEVEL 8.5 MG/DL (8.8-10.2); CARBON DIOXIDE LEVEL 28 MEQ/L (21-32); CHLORIDE LEVEL 104 MEQ/L (98-107); CREATININE FOR GFR 0.91 MG/DL (0.70-1.30); GLOMERULAR FILTRATION RATE > 60.0 (>42); GLUCOSE, FASTING 168 MG/DL (70-100); POTASSIUM SERUM 4.3 MEQ/L (3.5-5.1); SODIUM LEVEL 138 MEQ/L (136-145)
[2018-04-14] MEDS: SENNA 8.6 MG TAB (SENOKOT) PO (12:00)
[2018-04-14 16:42] LABS: BEDSIDE GLUCOSE 112 MG/DL (83-110)
[2018-04-14] MEDS: BISACODYL 10 MG SUPP PR (20:00)
[2018-04-14] MEDS: TEMAZEPAM 15 MG CAP PO (20:22)
[2018-04-14] MEDS: MAGNESIUM GLUCONATE 500 MG TAB PO (20:22)
[2018-04-14] MEDS: MIRTAZAPINE 15 MG TAB PO (20:23)
[2018-04-14] MEDS: LEVEMIR (INSULIN DETEMIR) 1 UNITS/0.01ML SC (20:24)
[2018-04-14 20:59] LABS: BEDSIDE GLUCOSE 254 MG/DL (83-110)
[2018-04-15] MEDS: **hydrALAZINE HCL** 25 MG TAB PO ×3 (05:58→21:07)
[2018-04-15 06:18] LABS: BEDSIDE GLUCOSE 102 MG/DL (83-110)
[2018-04-15 06:42] LABS: HEMATOCRIT 37.1 % (42.0-52.0); HEMOGLOBIN 12.2 g/dl (13.5-17.5); MEAN CORPUSCULAR HEMOGLOBIN 28.6 pg (27.0-33.0); MEAN CORPUSCULAR HGB CONC 32.9 g/dl (32.0-36.5); MEAN CORPUSCULAR VOLUME 87.1 fl (80.0-96.0); PLATELET COUNT, AUTOMATED 159 10^3/uL (150-450); RED BLOOD COUNT 4.26 10^6/uL (4.30-6.10)
[2018-04-15 07:13] LABS: ANION GAP 6 MEQ/L (8-16); BLOOD UREA NITROGEN 14 MG/DL (7-18); CALCIUM LEVEL 8.5 MG/DL (8.8-10.2); CARBON DIOXIDE LEVEL 30 MEQ/L (21-32); CHLORIDE LEVEL 105 MEQ/L (98-107); CREATININE FOR GFR 0.77 MG/DL (0.70-1.30); GLOMERULAR FILTRATION RATE > 60.0 (>42); GLUCOSE, FASTING 111 MG/DL (70-100); POTASSIUM SERUM 3.8 MEQ/L (3.5-5.1); SODIUM LEVEL 141 MEQ/L (136-145)
[2018-04-15] MEDS: LOSARTAN 50 MG TAB PO (09:00)
[2018-04-15] MEDS: CHLORHEXIDINE GLUCONATE 0.12 % 15ML UDC (PERIDEX ORAL RINSE) SSP ×2 (09:00→21:23)
[2018-04-15] MEDS: METOPROLOL TART 25 MG TABLET PO ×2 (09:00→20:54)
[2018-04-15] MEDS: DOXYCYCLINE HYCLATE 100 MG TAB PO ×2 (10:20→20:52)
[2018-04-15] MEDS: ATORVASTATIN 20 MG TAB PO (10:20)
[2018-04-15] MEDS: PANTOPRAZOLE 40MG TAB (PROTONIX) PO (10:21)
[2018-04-15] MEDS: DOCUSATE SODIUM 100 MG CAP PO ×2 (10:21→20:52)
[2018-04-15] MEDS: SENNA 8.6 MG TAB (SENOKOT) PO (10:21)
[2018-04-15] MEDS: POTASSIUM CHLORIDE 10 MEQ SR TABLET PO ×2 (10:21→20:53)
[2018-04-15] MEDS: SODIUM CHLORIDE 1 GM TAB PO (10:22)
[2018-04-15] MEDS: FINASTERIDE 5 MG TAB PO (10:22)
[2018-04-15] MEDS: DONEPEZIL 5 MG TAB PO (10:22)
[2018-04-15] MEDS: CLOBETASOL PROP 0.05% OINT 30 GM TOP ×2 (10:24→20:56)
[2018-04-15] MEDS: MICONAZOLE 2 % POWDER (DESENEX) TOP ×2 (10:24→20:55)
[2018-04-15 11:55] LABS: BEDSIDE GLUCOSE 212 MG/DL (83-110)
[2018-04-15 16:42] LABS: BEDSIDE GLUCOSE 174 MG/DL (83-110)
[2018-04-15 18:31] LABS: KETONE, URINE AUTO RFX NEGATIVE (NEGATIVE); MUCUS, URINE RFX SMALL (NEGATIVE); NITRITE, URINE AUTO RFX NEGATIVE (NEGATIVE); RBC, URINE AUTO RFX 12 /HPF (0-3); SPECIFIC GRAVITY UR AUTO RFX 1.011 (1.002-1.035); SQUAM EPITHELIAL CELL UR AURFX 0 /HPF (0-6)
[2018-04-15 18:33] LABS: LEUKOCYTE ESTERASE UR AUTO RFX 2+ (NEGATIVE); WBC, URINE AUTO RFX 100 /HPF (0-3)
[2018-04-15] MEDS: BISACODYL 10 MG SUPP PR (19:52)
[2018-04-15] MEDS: TEMAZEPAM 15 MG CAP PO (20:52)
[2018-04-15] MEDS: ACETAMINOPHEN TAB 650MG DOSE (2X325MG) PO (20:53)
[2018-04-15] MEDS: MIRTAZAPINE 15 MG TAB PO (20:53)
[2018-04-15] MEDS: MAGNESIUM GLUCONATE 500 MG TAB PO (20:53)
[2018-04-15] MEDS: LEVEMIR (INSULIN DETEMIR) 1 UNITS/0.01ML SC (20:55)
[2018-04-16 05:51] LABS: BEDSIDE GLUCOSE 110 MG/DL (83-110)
[2018-04-16] MEDS: **hydrALAZINE HCL** 25 MG TAB PO ×3 (05:52→20:20)
[2018-04-16] MEDS: CLOBETASOL PROP 0.05% OINT 30 GM TOP ×2 (08:51→20:21)
[2018-04-16] MEDS: MICONAZOLE 2 % POWDER (DESENEX) TOP ×2 (08:51→20:21)
[2018-04-16] MEDS: CHLORHEXIDINE GLUCONATE 0.12 % 15ML UDC (PERIDEX ORAL RINSE) SSP ×2 (08:52→21:00)
[2018-04-16] MEDS: METOPROLOL TART 25 MG TABLET PO ×2 (08:52→20:23)
[2018-04-16] MEDS: SODIUM CHLORIDE 1 GM TAB PO (08:52)
[2018-04-16] MEDS: DOCUSATE SODIUM 100 MG CAP PO ×2 (08:52→20:20)
[2018-04-16] MEDS: DONEPEZIL 5 MG TAB PO (08:52)
[2018-04-16] MEDS: POTASSIUM CHLORIDE 10 MEQ SR TABLET PO ×2 (08:52→20:20)
[2018-04-16] MEDS: FINASTERIDE 5 MG TAB PO (08:53)
[2018-04-16] MEDS: DOXYCYCLINE HYCLATE 100 MG TAB PO ×2 (08:53→20:19)
[2018-04-16] MEDS: LOSARTAN 50 MG TAB PO (08:53)
[2018-04-16] MEDS: PANTOPRAZOLE 40MG TAB (PROTONIX) PO (08:53)
[2018-04-16] MEDS: ATORVASTATIN 20 MG TAB PO (08:53)
[2018-04-16] MEDS: SENNA 8.6 MG TAB (SENOKOT) PO (11:01)
[2018-04-16] MEDS: amLODIPine 10 MG TAB PO (12:01)
[2018-04-16 16:15] LABS: BEDSIDE GLUCOSE 147 MG/DL (83-110)
[2018-04-16 19:56] LABS: BEDSIDE GLUCOSE 234 MG/DL (83-110)
[2018-04-16] MEDS: BISACODYL 10 MG SUPP PR (20:00)
[2018-04-16 20:15] LABS: BEDSIDE GLUCOSE 225 MG/DL (83-110)
[2018-04-16] MEDS: MIRTAZAPINE 15 MG TAB PO (20:19)
[2018-04-16] MEDS: MAGNESIUM GLUCONATE 500 MG TAB PO (20:19)
[2018-04-16] MEDS: TEMAZEPAM 15 MG CAP PO (20:19)
[2018-04-16] MEDS: LEVEMIR (INSULIN DETEMIR) 1 UNITS/0.01ML SC (20:21)
[2018-04-17] MEDS: **hydrALAZINE HCL** 25 MG TAB PO ×3 (06:00→21:20)
[2018-04-17 06:56] LABS: BEDSIDE GLUCOSE 152 MG/DL (83-110)
[2018-04-17] MEDS: CHLORHEXIDINE GLUCONATE 0.12 % 15ML UDC (PERIDEX ORAL RINSE) SSP ×2 (09:02→21:20)
[2018-04-17] MEDS: LEVEMIR (INSULIN DETEMIR) 1 UNITS/0.01ML SC ×2 (09:02→21:18)
[2018-04-17] MEDS: ATORVASTATIN 20 MG TAB PO (09:03)
[2018-04-17] MEDS: FINASTERIDE 5 MG TAB PO (09:03)
[2018-04-17] MEDS: SODIUM CHLORIDE 1 GM TAB PO (09:03)
[2018-04-17] MEDS: POTASSIUM CHLORIDE 10 MEQ SR TABLET PO ×2 (09:03→21:18)
[2018-04-17] MEDS: LOSARTAN 50 MG TAB PO (09:04)
[2018-04-17] MEDS: METOPROLOL TART 25 MG TABLET PO ×2 (09:04→21:19)
[2018-04-17] MEDS: PANTOPRAZOLE 40MG TAB (PROTONIX) PO (09:05)
[2018-04-17] MEDS: DOXYCYCLINE HYCLATE 100 MG TAB PO ×2 (09:05→21:20)
[2018-04-17] MEDS: DOCUSATE SODIUM 100 MG CAP PO ×2 (09:05→21:20)
[2018-04-17] MEDS: DONEPEZIL 5 MG TAB PO (09:05)
[2018-04-17] MEDS: amLODIPine 10 MG TAB PO (09:05)
[2018-04-17] MEDS: CLOBETASOL PROP 0.05% OINT 30 GM TOP ×2 (11:41→21:21)
[2018-04-17] MEDS: MICONAZOLE 2 % POWDER (DESENEX) TOP ×2 (11:42→21:22)
[2018-04-17 11:56] LABS: BEDSIDE GLUCOSE 150 MG/DL (83-110)
[2018-04-17] MEDS: SENNA 8.6 MG TAB (SENOKOT) PO (12:23)
[2018-04-17 17:05] LABS: BEDSIDE GLUCOSE 127 MG/DL (83-110)
[2018-04-17 20:13] LABS: BEDSIDE GLUCOSE 183 MG/DL (83-110)
[2018-04-17] MEDS: BISACODYL 10 MG SUPP PR (21:18)
[2018-04-17] MEDS: MAGNESIUM GLUCONATE 500 MG TAB PO (21:18)
[2018-04-17] MEDS: TEMAZEPAM 15 MG CAP PO (21:19)
[2018-04-17] MEDS: MIRTAZAPINE 15 MG TAB PO (21:20)
[2018-04-18] MEDS: **hydrALAZINE HCL** 25 MG TAB PO ×3 (06:16→21:44)
[2018-04-18 06:58] LABS: BASO % 0.5 % (0.0-1.0); EOS # 0.1 10^3/uL (0.0-0.50); EOS % 1.9 % (0.0-3.0); HEMATOCRIT 39.7 % (42.0-52.0); HEMOGLOBIN 12.9 g/dl (13.5-17.5); IMMATURE GRANULOCYTE % 0.4 % (0-3.0); LYMPH # 0.9 10^3/uL (1.5-4.5); LYMPH % 15.5 % (24.0-44.0); MEAN CORPUSCULAR HEMOGLOBIN 28.7 pg (27.0-33.0); MEAN CORPUSCULAR HGB CONC 32.5 g/dl (32.0-36.5); MEAN CORPUSCULAR VOLUME 88.2 fl (80.0-96.0); MONO # 0.4 10^3/uL (0.0-0.8); MONO % 7.2 % (0.0-5.0); NEUTROPHILS # 4.2 10^3/uL (1.8-7.7); NEUTROPHILS % 74.5 % (36.0-66.0); PLATELET COUNT, AUTOMATED 173 10^3/uL (150-450); RED CELL DISTRIBUTION WIDTH 14.3 % (11.5-14.5); WHITE BLOOD COUNT 5.7 10^3/uL (4.0-10.0)
[2018-04-18 07:15] LABS: ANION GAP 6 MEQ/L (8-16); BLOOD UREA NITROGEN 12 MG/DL (7-18); CALCIUM LEVEL 8.8 MG/DL (8.8-10.2); CARBON DIOXIDE LEVEL 30 MEQ/L (21-32); CHLORIDE LEVEL 105 MEQ/L (98-107); CREATININE FOR GFR 0.78 MG/DL (0.70-1.30); GLOMERULAR FILTRATION RATE > 60.0 (>42); GLUCOSE, FASTING 112 MG/DL (70-100); POTASSIUM SERUM 4.1 MEQ/L (3.5-5.1); SODIUM LEVEL 141 MEQ/L (136-145)
[2018-04-18] MEDS: LEVEMIR (INSULIN DETEMIR) 1 UNITS/0.01ML SC ×2 (09:00→21:45)
[2018-04-18] MEDS: METOPROLOL TART 25 MG TABLET PO ×2 (09:16→21:44)
[2018-04-18] MEDS: CHLORHEXIDINE GLUCONATE 0.12 % 15ML UDC (PERIDEX ORAL RINSE) SSP ×2 (09:16→21:45)
[2018-04-18] MEDS: DOCUSATE SODIUM 100 MG CAP PO ×2 (09:17→21:44)
[2018-04-18] MEDS: SODIUM CHLORIDE 1 GM TAB PO (09:17)
[2018-04-18] MEDS: DOXYCYCLINE HYCLATE 100 MG TAB PO ×2 (09:17→21:44)
[2018-04-18] MEDS: DONEPEZIL 5 MG TAB PO (09:17)
[2018-04-18] MEDS: POTASSIUM CHLORIDE 10 MEQ SR TABLET PO ×2 (09:17→21:43)
[2018-04-18] MEDS: amLODIPine 10 MG TAB PO (09:17)
[2018-04-18] MEDS: PANTOPRAZOLE 40MG TAB (PROTONIX) PO (09:18)
[2018-04-18] MEDS: LOSARTAN 50 MG TAB PO (09:18)
[2018-04-18] MEDS: FINASTERIDE 5 MG TAB PO (09:18)
[2018-04-18] MEDS: ATORVASTATIN 20 MG TAB PO (09:18)
[2018-04-18] MEDS: CLOBETASOL PROP 0.05% OINT 30 GM TOP ×2 (09:19→21:46)
[2018-04-18] MEDS: MICONAZOLE 2 % POWDER (DESENEX) TOP ×2 (09:20→21:46)
[2018-04-18 11:46] LABS: BEDSIDE GLUCOSE 215 MG/DL (83-110)
[2018-04-18] MEDS: SENNA 8.6 MG TAB (SENOKOT) PO (13:09)
[2018-04-18 16:33] LABS: BEDSIDE GLUCOSE 185 MG/DL (83-110)
[2018-04-18] MEDS: BISACODYL 10 MG SUPP PR (20:00)
[2018-04-18 21:11] LABS: BEDSIDE GLUCOSE 208 MG/DL (83-110)
[2018-04-18] MEDS: ACETAMINOPHEN TAB 650MG DOSE (2X325MG) PO (21:43)
[2018-04-18] MEDS: MELATONIN 5 MG TAB PO (21:43)
[2018-04-18] MEDS: MIRTAZAPINE 15 MG TAB PO (21:43)
[2018-04-18] MEDS: TEMAZEPAM 15 MG CAP PO (21:44)
[2018-04-18] MEDS: MAGNESIUM GLUCONATE 500 MG TAB PO (21:45)
[2018-04-19 05:28] LABS: BEDSIDE GLUCOSE 133 MG/DL (83-110)
[2018-04-19] MEDS: **hydrALAZINE HCL** 25 MG TAB PO ×3 (06:17→21:30)
[2018-04-19] MEDS: SODIUM CHLORIDE 1 GM TAB PO (08:13)
[2018-04-19] MEDS: PANTOPRAZOLE 40MG TAB (PROTONIX) PO (08:13)
[2018-04-19] MEDS: POTASSIUM CHLORIDE 10 MEQ SR TABLET PO ×2 (08:13→21:31)
[2018-04-19] MEDS: FINASTERIDE 5 MG TAB PO (08:13)
[2018-04-19] MEDS: DOXYCYCLINE HYCLATE 100 MG TAB PO ×2 (08:13→21:31)
[2018-04-19] MEDS: METOPROLOL TART 25 MG TABLET PO ×2 (08:14→21:31)
[2018-04-19] MEDS: ATORVASTATIN 20 MG TAB PO (08:14)
[2018-04-19] MEDS: amLODIPine 10 MG TAB PO (08:14)
[2018-04-19] MEDS: DONEPEZIL 5 MG TAB PO (08:15)
[2018-04-19] MEDS: MICONAZOLE 2 % POWDER (DESENEX) TOP ×2 (08:15→21:32)
[2018-04-19] MEDS: LEVEMIR (INSULIN DETEMIR) 1 UNITS/0.01ML SC ×2 (08:15→21:31)
[2018-04-19] MEDS: LOSARTAN 50 MG TAB PO (08:15)
[2018-04-19] MEDS: CHLORHEXIDINE GLUCONATE 0.12 % 15ML UDC (PERIDEX ORAL RINSE) SSP ×2 (08:16→21:00)
[2018-04-19] MEDS: CLOBETASOL PROP 0.05% OINT 30 GM TOP ×2 (08:16→21:32)
[2018-04-19] MEDS: DOCUSATE SODIUM 100 MG CAP PO ×2 (08:16→21:30)
[2018-04-19 11:48] LABS: BEDSIDE GLUCOSE 171 MG/DL (83-110)
[2018-04-19] MEDS: SENNA 8.6 MG TAB (SENOKOT) PO (12:00)
[2018-04-19] MEDS: BISACODYL 10 MG SUPP PR (20:00)
[2018-04-19 20:13] LABS: BEDSIDE GLUCOSE 136 MG/DL (83-110)
[2018-04-19] MEDS: MELATONIN 5 MG TAB PO (21:29)
[2018-04-19] MEDS: MIRTAZAPINE 15 MG TAB PO (21:29)
[2018-04-19] MEDS: ACETAMINOPHEN TAB 650MG DOSE (2X325MG) PO (21:29)
[2018-04-19] MEDS: TEMAZEPAM 15 MG CAP PO (21:30)
[2018-04-19] MEDS: MAGNESIUM GLUCONATE 500 MG TAB PO (21:30)
[2018-04-20 06:12] LABS: BEDSIDE GLUCOSE 213 MG/DL (83-110)
[2018-04-20] MEDS: **hydrALAZINE HCL** 25 MG TAB PO ×3 (06:37→21:28)
[2018-04-20 06:51] LABS: HEMATOCRIT 36.9 % (42.0-52.0); MEAN CORPUSCULAR HEMOGLOBIN 28.6 pg (27.0-33.0); MEAN CORPUSCULAR HGB CONC 32.5 g/dl (32.0-36.5); MEAN CORPUSCULAR VOLUME 88.1 fl (80.0-96.0); PLATELET COUNT, AUTOMATED 155 10^3/uL (150-450); RED BLOOD COUNT 4.19 10^6/uL (4.30-6.10); RED CELL DISTRIBUTION WIDTH 14.1 % (11.5-14.5); WHITE BLOOD COUNT 4.6 10^3/uL (4.0-10.0)
[2018-04-20 07:12] LABS: ANION GAP 6 MEQ/L (8-16); BLOOD UREA NITROGEN 13 MG/DL (7-18); CALCIUM LEVEL 8.6 MG/DL (8.8-10.2); CARBON DIOXIDE LEVEL 29 MEQ/L (21-32); CHLORIDE LEVEL 107 MEQ/L (98-107); CREATININE FOR GFR 0.79 MG/DL (0.70-1.30); GLOMERULAR FILTRATION RATE > 60.0 (>42); GLUCOSE, FASTING 116 MG/DL (70-100); MAGNESIUM LEVEL 2.2 MG/DL (1.8-2.4); POTASSIUM SERUM 4.3 MEQ/L (3.5-5.1); SODIUM LEVEL 142 MEQ/L (136-145)
[2018-04-20 07:18] LABS: BEDSIDE GLUCOSE 122 MG/DL (83-110)
[2018-04-20] MEDS: PANTOPRAZOLE 40MG TAB (PROTONIX) PO (08:45)
[2018-04-20] MEDS: LEVEMIR (INSULIN DETEMIR) 1 UNITS/0.01ML SC ×2 (08:45→21:27)
[2018-04-20] MEDS: amLODIPine 10 MG TAB PO (08:46)
[2018-04-20] MEDS: POTASSIUM CHLORIDE 10 MEQ SR TABLET PO ×2 (08:46→21:24)
[2018-04-20] MEDS: DONEPEZIL 5 MG TAB PO (08:46)
[2018-04-20] MEDS: LOSARTAN 50 MG TAB PO (08:46)
[2018-04-20] MEDS: DOXYCYCLINE HYCLATE 100 MG TAB PO ×2 (08:46→21:25)
[2018-04-20] MEDS: MICONAZOLE 2 % POWDER (DESENEX) TOP ×2 (08:47→21:33)
[2018-04-20] MEDS: FINASTERIDE 5 MG TAB PO (08:47)
[2018-04-20] MEDS: ATORVASTATIN 20 MG TAB PO (08:47)
[2018-04-20] MEDS: SODIUM CHLORIDE 1 GM TAB PO (08:47)
[2018-04-20] MEDS: METOPROLOL TART 25 MG TABLET PO ×2 (08:47→21:23)
[2018-04-20] MEDS: DOCUSATE SODIUM 100 MG CAP PO ×2 (08:47→21:24)
[2018-04-20] MEDS: CHLORHEXIDINE GLUCONATE 0.12 % 15ML UDC (PERIDEX ORAL RINSE) SSP ×2 (08:48→21:00)
[2018-04-20] MEDS: CLOBETASOL PROP 0.05% OINT 30 GM TOP ×2 (08:48→21:28)
[2018-04-20] MEDS: SENNA 8.6 MG TAB (SENOKOT) PO (12:00)
[2018-04-20] MEDS: BISACODYL 10 MG SUPP PR (19:21)
[2018-04-20 20:39] LABS: BEDSIDE GLUCOSE 208 MG/DL (83-110)
[2018-04-20] MEDS: MELATONIN 5 MG TAB PO (21:22)
[2018-04-20] MEDS: MIRTAZAPINE 15 MG TAB PO (21:24)
[2018-04-20] MEDS: MAGNESIUM GLUCONATE 500 MG TAB PO (21:24)
[2018-04-20] MEDS: TEMAZEPAM 15 MG CAP PO (21:25)
[2018-04-20] MEDS: ACETAMINOPHEN TAB 650MG DOSE (2X325MG) PO (23:56)
[2018-04-21 00:48] LABS: BEDSIDE GLUCOSE 201 MG/DL (83-110)
[2018-04-21] MEDS: **hydrALAZINE HCL** 25 MG TAB PO (05:11)
[2018-04-21 06:58] LABS: BEDSIDE GLUCOSE 110 MG/DL (83-110)
[2018-04-21] MEDS: FINASTERIDE 5 MG TAB PO (08:37)
[2018-04-21] MEDS: DOXYCYCLINE HYCLATE 100 MG TAB PO (08:37)
[2018-04-21] MEDS: SODIUM CHLORIDE 1 GM TAB PO (08:37)
[2018-04-21] MEDS: DOCUSATE SODIUM 100 MG CAP PO (08:37)
[2018-04-21] MEDS: amLODIPine 10 MG TAB PO (08:38)
[2018-04-21] MEDS: PANTOPRAZOLE 40MG TAB (PROTONIX) PO (08:38)
[2018-04-21] MEDS: METOPROLOL TART 25 MG TABLET PO (08:38)
[2018-04-21] MEDS: LOSARTAN 50 MG TAB PO (08:39)
[2018-04-21] MEDS: POTASSIUM CHLORIDE 10 MEQ SR TABLET PO (08:39)
[2018-04-21] MEDS: DONEPEZIL 5 MG TAB PO (08:39)
[2018-04-21] MEDS: ATORVASTATIN 20 MG TAB PO (08:39)
[2018-04-21] MEDS: CLOBETASOL PROP 0.05% OINT 30 GM TOP (08:40)
[2018-04-21] MEDS: MICONAZOLE 2 % POWDER (DESENEX) TOP (08:40)
[2018-04-21] MEDS: LEVEMIR (INSULIN DETEMIR) 1 UNITS/0.01ML SC (08:40)
[2018-04-21] MEDS: CHLORHEXIDINE GLUCONATE 0.12 % 15ML UDC (PERIDEX ORAL RINSE) SSP (08:41)
== END 2018-04-21 12:00 | DRG 57 ==
LOC: M PM&R 18:45
PROVIDERS: Physical Medicine & Rehabilitation
DX: I69.154 Hemiplegia and hemiparesis following nontraumatic intracerebral hemorrhage affecting left non-dominant side (principal); E87.1 Hypo-osmolality and hyponatremia; N39.0 Urinary tract infection, site not specified; E87.6 Hypokalemia; I10 Essential (primary) hypertension; Z79.899 Other long term (current) drug therapy; Z79.4 Long term (current) use of insulin; E11.9 Type 2 diabetes mellitus without complications; E78.5 Hyperlipidemia, unspecified; D72.829 Elevated white blood cell count, unspecified; G47.00 Insomnia, unspecified; L25.9 Unspecified contact dermatitis, unspecified cause; B96.29 Other Escherichia coli [E. coli] as the cause of diseases classified elsewhere; R33.9 Retention of urine, unspecified; L73.9 Follicular disorder, unspecified